=== PATIENT | male | born 1995 | race American Indian/Alaskan Native ===

== ENCOUNTER 2018-12-27 16:24 | Emergency (ER) | payer MEDICARE ==
[2018-12-27 16:46] VITALS: BP 144/96
--- NOTE | 2018-12-27 16:50 | Event Note ---
ED Screening Note Date of service: 12/27/18 Time: 16:46 ED Screening Note: 23 y/o male comes in for Pleurisy and sob. time 1 week. History of heart transplant in 1995. No fevers. This initial assessment/diagnostic orders/clinical plan/treatment(s) is/are subject to change based on patients health status, clinical progression and re- assessment by fellow clinical providers in the ED. Further treatment and workup at subsequent clinical providers discretion. Patient/guardian urged not to elope from the ED as their condition may be serious if not clinically assessed and managed. Initial orders include:
--- NOTE | 2018-12-27 17:50 | XRay Report ---
CHEST 2 VIEWS INDICATION / CLINICAL INFORMATION: sob chest pain with deep breath.. COMPARISON: None available. FINDINGS: SUPPORT DEVICES: None. HEART / MEDIASTINUM: Postoperative changes of median sternotomy. Heart size is normal. LUNGS / PLEURA: Mild pulmonary hyperinflation. Mild scarring in the left upper lobe. No superimposed acute disease. No pneumothorax. ADDITIONAL FINDINGS: No significant additional findings. IMPRESSION: 1. No acute findings. Signer Name: Chandan Marino MD Signed: 12/27/2018 5:46 PM Workstation Name: [id number]
[2018-12-27 18:23] LABS: Basophils # (Auto) 0.1 K/mm3 (0.0-0.1); Basophils % (Auto) 1.1 % (0.0-1.8); Eosinophils # (Auto) 0.3 K/mm3 (0.0-0.4); Eosinophils % (Auto) 4.7 % (0.0-4.3); Hematocrit 33.8 % (35.5-45.6); Hemoglobin 11.9 gm/dl (11.8-15.2); Lymphocytes # (Auto) 3.4 K/mm3 (1.2-5.4); Mean Corpuscular HGB Conc 35 % (32-34); Mean Corpuscular Volume 91 fl (84-94); Monocytes # (Auto) 0.5 K/mm3 (0.0-0.8); Monocytes % (Auto) 7.4 % (0.0-7.3); Platelet Count 280 K/mm3 (140-440); Red Blood Count 3.73 M/mm3 (3.65-5.03); Red Cell Distribution Width 14.5 % (13.2-15.2)
[2018-12-27 18:40] LABS: Albumin 3.7 g/dL (3.9-5); Calcium 6.4 mg/dL (8.4-10.2)
[2018-12-27] MEDS ORDERED: SUBLIMAZE IV ONE (20:24)
[2018-12-27] MEDS ORDERED: ZOFRAN IV ONE (20:24)
--- NOTE | 2018-12-27 20:30 | Emergency Department Report ---
HPI - General Chief Complaint: Dyspnea/Respdistress Time Seen by Provider: 12/27/18 16:45 - HPI HPI: Room 25 The patient is a 23-year-old male presenting with a chief complaint of right- sided chest pain. The patient has a history of cardiac transplant at 2 months of age secondary to right-sided hypoplasty. The patient states for about one week he said right-sided chest pain has been sharp and pleuritic in nature. Patient denies shortness of breath or fever. Patient admits to occasional cough today but states it is nonproductive. Patient denies nausea/vomiting or diaphoresis. Patient denies any recent flights/long car trips. The patient cu rrently gives his pain a score of 9/10. The patient states he went to an urgent care facility earlier today had a chest x-ray performed that was concerning for possible pleural effusion Location: [See above] Duration: [See above] Quality: [See above] Severity: [See above] Modifying factors: [see above] Context: [see above] Mode of transportation: [not driving] ED Past Medical Hx - Past Medical History Previous Medical History?: Yes Hx Renal Disease: Yes (PD) Hx HIV: Yes Additional medical history: heart transplant, lymphoma Ca - Surgical History Past Surgical History?: Yes Additional Surgical History: heart transplant - Family History Family history: no significant - Social History Smoking Status: Never Smoker Substance Use Type: None (denies illicit drug use), Alcohol (occasional) - Medications Home Medications: Home Medications Medication Instructions Recorded Confirmed Last Taken Type HYDROcodone/APAP 5-325 [[place] 1 - 2 each PO Q6HR PRN #14 tablet 12/27/18 Unknown Rx 5/325] NIFEdipine 60 mg PO BID 12/27/18 12/27/18 Unknown History Prograf 6 mg PO BID 12/27/18 12/27/18 Unknown History Triumeq 600-50-300 mg Tablet mg PO DAILY 12/27/18 Unknown History ED Review of Systems ROS: Stated complaint: POSS PLEURA Other details as noted in HPI Constitutional: denies: diaphoresis, fever Eyes: denies: eye pain ENT: denies: throat pain Respiratory: denies: shortness of breath Cardiovascular: chest pain Endocrine: no symptoms reported Gastrointestinal: denies: nausea, vomiting Genitourinary: denies: testicular pain Musculoskeletal: denies: back pain Neurological: denies: headache Physical Exam - Physical Exam Vital Signs: Vital Signs 12/27/18 16:44 Temperature 97.6 F Pulse Rate 96 H Respiratory 20 Rate Blood Pressure 144/96 O2 Sat by Pulse 99 Oximetry Physical Exam: GENERAL: The patient is well-developed well-nourished male sitting on stretcher not appearing to be in acute distress. [] HEENT: Normocephalic. Atraumatic. Extraocular motions are intact. Patient has moist mucous membranes. NECK: Supple. Trachea midline CHEST/LUNGS: Clear to auscultation. There is no respiratory distress noted. HEART/CARDIOVASCULAR: Regular. There is no tachycardia. There is no gallop rub or murmur. ABDOMEN: Abdomen is soft, nontender. Patient has normal bowel sounds. There is no abdominal distention. SKIN: There is no rash. There is no edema. There is no diaphoresis. NEURO: The patient is awake, alert, and oriented. The patient is cooperative. The patient has normal speech MUSCULOSKELETAL: There is no evidence of acute injury. ED Course Vital Signs 12/27/18 16:44 Temperature 97.6 F Pulse Rate 96 H Respiratory 20 Rate Blood Pressure 144/96 O2 Sat by Pulse 99 Oximetry - Consultations Consultation #1: 12/27/18 22:45 Case discussed with patient's cardiothoracic surgeon (Dr. Yakov Ospina, [place])- if pain is pleuritic and agree with plan to treat with pain medication and follow-up as an outpatient. Troponin unnecessary ED Medical Decision Making - Lab Data Result diagrams: 12/27/18 18:02 12/27/18 18:02 Laboratory Tests 12/27/18 12/27/18 18:02 18:02 WBC 7.3 RBC 3.73 Hgb 11.9 Hct 33.8 L MCV 91 MCH 32 MCHC 35 H RDW 14.5 Plt Count 280 Lymph % (Auto) 47.0 H [place] % (Auto) 7.4 H Eos % (Auto) 4.7 H Baso % (Auto) 1.1 Lymph # 3.4 Randolph # 0.5 Eos # 0.3 Baso # 0.1 Seg Neutrophils % 39.8 L Seg Neutrophils # 2.9 Sodium 136 L Potassium 3.9 Chloride 97.1 L Carbon Dioxide 20 L Anion Gap 23 BUN 47 H Creatinine 12.3 H Estimated GFR 6 BUN/Creatinine Ratio 4 Glucose 93 Calcium 6.4 L Total Bilirubin 0.30 AST 20 ALT 10 Alkaline Phosphatase 174 H NT-Pro-B Natriuret Pep 37773 H Total Protein 8.2 Albumin 3.7 L Albumin/Globulin Ratio 0.8 - EKG Data -: EKG Interpreted by Me EKG shows normal: sinus rhythm Rate: normal - EKG Data When compared to previous EKG there are: previous EKG unavailable Interpretation: nonspecific ST-T wave chio (T-wave inversions in leads V2, V3 ) - Radiology Data Radiology results: report reviewed (chest x-ray), image reviewed (chest x-ray, VQ scan) interpreted by me: Chest x-ray-no focal infiltrates, no pneumothorax [address] [address] XRay Report Signed Patient: SAIMA PARTIDA MR#: [id number] : 1995 Acct:[id number] Age/Sex: 23 / M ADM Date: 12/27/18 Loc: ED Attending Dr: Ordering Physician: JUAN J NICOLE Date of Service: 12/27/18 Procedure(s): XR chest routine 2V Accession Number(s): [id number] cc: JUAN J NICOLE Fluoro Time In Minutes: CHEST 2 VIEWS INDICATION / CLINICAL INFORMATION: sob chest pain with deep breath.. COMPARISON: None available. FINDINGS: SUPPORT DEVICES: None. HEART / MEDIASTINUM: Postoperative changes of median sternotomy. Heart size is normal. LUNGS / PLEURA: Mild pulmonary hyperinflation. Mild scarring in the left upper lobe. No superimposed acute disease. No pneumothorax. ADDITIONAL FINDINGS: No significant additional findings. IMPRESSION: 1. No acute findings. Signer Name: Chandan Marino MD Signed: 12/27/2018 5:46 PM Workstation Name: [id number] Transcribed By: GAURAV Dictated By: Chandan Marino MD Electronically Authenticated By: Chandan Marino MD Signed Date/Time: 12/27/181745 DD/ 43 TD/TT: [address] [address] Nuclear Medicine Report Signed Patient: SAIMA PARTIDA MR#: [id number] : 1995 Acct:[id number] Age/Sex: 23 / M ADM Date: 12/27/18 Loc: ED Attending Dr: Ordering Physician: LASHAWN PAIZ MD Date of Service: 12/27/18 Procedure(s): NM lung scan perf/vent Accession Number(s): [id number] cc: LASHAWN PAIZ MD Ventilation/perfusion scan 5 uCi technetium 99 MAA was administered prior to perfusion imaging. 15 uCi xenon-133 was administered prior to ventilation imaging. HISTORY: Right-sided chest pain. Ventilation study show fairly homogeneous uptake throughout both lungs. No significant air trapping. Perfusion is slightly inhomogeneous in both lungs, but I see no definite mismatched defects to indicate pulmonary embolus. IMPRESSION: Low probability of pulmonary embolus. However, if pulmonary embolus is strongly suspected clinically, CT angiogram is much more sensitive. Signer Name: Nelson Salcido MD Signed: 12/27/2018 9:48 PM Workstation Name: [id number] Transcribed By: TM Dictated By: Nelson Salcido MD Electronically Authenticated By: Nelson Salcido MD Signed Date/Time: 12/27/182147 DD/ 43 TD/TT: - Differential Diagnosis PE, pleurisy, pneumothorax, pneumonia, bronchitis Critical care attestation.: If time is entered above; I have spent that time in minutes in the direct care of this critically ill patient, excluding procedure time. ED Disposition Clinical Impression: Pleurisy Disposition: DC-01 TO HOME OR SELFCARE Is pt being admited?: No Does the pt Need Aspirin: No Condition: Stable Instructions: Pleurisy (ED) Additional Instructions: Return to the emergency department immediately should you develop worsening symptoms, fever, inability to tolerate food or liquid or any other concerns. Prescriptions: HYDROcodone/APAP 5-325 [[place] 5/325] 1 - 2 each PO Q6HR PRN #14 tablet PRN Reason: Pain Referrals: GABRIELA BARNES MD [Primary Care Provider] - 3-5 Days PRIMARY CAREMD [Referring] - 3-5 Days Time of Disposition: 22:48
--- NOTE | 2018-12-27 21:52 | Nuclear Medicine Report ---
Ventilation/perfusion scan 5 uCi technetium 99 MAA was administered prior to perfusion imaging. 15 uCi xenon-133 was administere d prior to ventilation imaging. HISTORY: Right-sided chest pain. Ventilation study show fairly homogeneous uptake throughout both lungs. No significant air trapping. Perfusion is slightly inhomogeneous in both lungs, but I see no definite mismatched defects to indica te pulmonary embolus. IMPRESSION: Low probability of pulmonary embolus. However, if pulmonary embolus is strongly suspected clinically, CT angiogram is much more sensitive. Signer Name: Nelson Salcido MD Signed: 12/27/2018 9:48 PM Workstation Name: [id number]
== END 2018-12-27 23:02 | disposition home or self-care (01) ==
LOC: ED 16:24
DX: R09.1 Pleurisy (principal); Z98.890 Other specified postprocedural states; Z79.899 Other long term (current) drug therapy; Z88.6 Allergy status to analgesic agent; Z88.8 Allergy status to other drugs, medicaments and biological substances
CPT/HCPCS: 36415; 71046; 78582; 80053; 83880; 85025; 93005; 93010; 96374; 96375; 99284; A9540; A9558; J2405; J3010

== ENCOUNTER 2019-04-24 04:31 | Inpatient (IN) | payer MEDICARE ==
[2019-04-24] MEDS ORDERED: ACETAMINOPHEN 325 MG TAB PO ONE (06:26)
[2019-04-24] MEDS ORDERED: MORPHINE 4 MG/1 ML INJ IM ONE (06:26)
--- NOTE | 2019-04-24 06:27 | Emergency Department Report ---
ED General Adult HPI - General Chief complaint: Rectal Pain Stated complaint: HIP/BUTTOCK PAIN Time Seen by Provider: 04/24/19 06:10 Source: patient, RN notes reviewed Mode of arrival: Ambulatory Limitations: Physical Limitation - History of Present Illness Initial comments: This is a 24-year-old gentleman. This patient is not known to this provider pr eviously. Past history is complex, including renal disease, on peritoneal dialysis, HIV, lymphoma, cardiac transplant, currently on Prograf therapy Patient reports all of his medical care is coordinated around [facility] Today, he presented to the emergency room with a complaint of nontraumatic left- sided gluteal pain. Pain is sharp and throbbing. It moves down the left posterior hamstring. There is no trauma, no recent vigorous physical activity, no heavy weightlifting. He denies headache, neck pain, chest pain, abdominal pain, shortness of breath and urinary symptoms. He makes no complaint of rectal pain per se. There is no complaint of vomiting blood and/or defecation of blood. Pain was not really improved by Tylenol or morphine after my initial evaluation. -: Gradual, This evening Location: buttocks, left Radiation: other Quality: other Consistency: other Improves with: other Worsens with: other Associated Symptoms: other - Related Data Home Medications Medication Instructions Recorded Confirmed Last Taken NIFEdipine 60 mg PO BID 12/27/18 12/27/18 Unknown Prograf 6 mg PO BID 12/27/18 12/27/18 Unknown Triumeq 600-50-300 mg Tablet mg PO DAILY 12/27/18 Unknown Previous Rx's Medication Instructions Recorded Last Taken Type HYDROcodone/APAP 5-325 [[place] 1 - 2 each PO Q6HR PRN #14 tablet 12/27/18 Unknown Rx 5/325] Allergies Allergy/AdvReac Type Severity Reaction Status Date / Time NSAIDS (Non-Steroidal Allergy Hives Verified 04/24/19 07:39 Anti-Inflamma ED Review of Systems ROS: Stated complaint: HIP/BUTTOCK PAIN Other details as noted in HPI Constitutional: denies: fever Eyes: denies: eye discharge ENT: denies: congestion Respiratory: denies: wheezing Cardiovascular: denies: syncope Gastrointestinal: denies: nausea, vomiting Genitourinary: denies: dysuria Musculoskeletal: myalgia Skin: denies: lesions Neurological: paresthesias ED Past Medical Hx - Past Medical History Previous Medical History?: Yes Hx Renal Disease: Yes (PD) Hx HIV: Yes Additional medical history: heart transplant, lymphoma Ca - Surgical History Past Surgical History?: Yes Additional Surgical History: heart transplant - Social History Smoking Status: Never Smoker Substance Use Type: None - Medications Home Medications: Home Medications Medication Instructions Recorded Confirmed Last Taken Type HYDROcodone/APAP 5-325 [[place] 1 - 2 each PO Q6HR PRN #14 tablet 12/27/18 Unknown Rx 5/325] NIFEdipine 60 mg PO BID 12/27/18 12/27/18 Unknown History Prograf 6 mg PO BID 12/27/18 12/27/18 Unknown History Triumeq 600-50-300 mg Tablet mg PO DAILY 12/27/18 Unknown History ED Physical Exam - General Limitations: No Limitations, Other (during the entire history and physical examination, I am ornamenter hand and escorted by nurse Jazlyn Resendiz) General appearance: alert, in no apparent distress - Head Head exam: Present: atraumatic, normocephalic - Eye Eye exam: Present: normal appearance, EOMI. Absent: nystagmus - ENT ENT exam: Present: normal exam, normal orophraynx, mucous membranes moist, normal external ear exam - Neck Neck exam: Present: normal inspection, full ROM. Absent: tenderness, meningismus - Respiratory Respiratory exam: Present: normal lung sounds bilaterally. Absent: respiratory distress - Cardiovascular Cardiovascular Exam: Present: regular rate, normal rhythm, normal heart sounds. Absent: bradycardia, tachycardia, irregular rhythm, systolic murmur, diastolic murmur, rubs, gallop - GI/Abdominal GI/Abdominal exam: Present: soft, normal bowel sounds, other (there is a peritoneal dialysis access catheter noted, with no redness, pus or streaking). Absent: distended, tenderness, guarding, rebound, rigid, pulsatile mass - Rectal Rectal exam: Present: normal inspection (there is exquisite reproducible left-sided gluteal tenderness. There is no redness, pus or streaking. There is reproducible sacroiliac tenderness. The gluteal compartments are soft.), other (chaperoned by nurse Lisa Resendiz) - Extremities Exam Extremities exam: Present: normal inspection, full ROM, other (2+ pulses noted in the bilateral upper and lower extremities. Muscular compartments are soft. The pelvis is stable. There is no long bony tenderness.). Absent: pedal edema, calf tenderness - Back Exam Back exam: Present: normal inspection. Absent: tenderness, CVA tenderness (R), muscle spasm, paraspinal tenderness, vertebral tenderness - Neurological Exam Neurological exam: Present: alert, oriented X3, other (there is no facial droop. The tongue is midline. Extraocular movements are intact bilaterally. There is 5/5 strength bilateral upper and lower extremities. Sensation is intact to light touch bilateral upper and lower extremities.) - Psychiatric Psychiatric exam: Present: anxious - Skin Skin exam: Present: warm, dry, intact, normal color. Absent: rash ED Course Vital Signs 04/24/19 04/24/19 04/24/19 04:44 06:05 07:03 Temperature 98.8 F Pulse Rate 91 H Respiratory 18 18 18 Rate Blood Pressure 135/95 Blood Pressure [Left] O2 Sat by Pulse 100 98 Oximetry 04/24/19 04/24/19 07:04 08:14 Temperature Pulse Rate 95 H Respiratory 18 19 Rate Blood Pressure Blood Pressure 134/90 [Left] O2 Sat by Pulse 100 Oximetry - Reevaluation(s) Reevaluation #1: 04/24/19 08:06 Differential diagnosis, including not limited to: Sacroiliitis, myositis, muscular pain, strain, tendinitis, myositis Assessment and plan: 24-year-old gentleman with nontraumatic reproducible left- sided gluteal pain and tenderness. He is afebrile with reassuring vital signs. Gluteal compartments are soft. There is no redness, pus or streaking. Patient appears to have pain out of proportion to examination and history. Laboratory studies suggest myositis. He is also found to have azotemia, uremia, and hypocalcemia. Noncontrast CT scan of the pelvis is ordered. IV fluids, and additional pain medication ordered. Calcium supplementation ordered. Patient does not appear to be decompensated from a cardiac transplant perspective. As a courtesy, we have reached out to his transplant team/coordinator to discuss the case. We are waiting for them to call back. Additional pain medication ordered. Patient and family updated on laboratory studies and plan of care. He will either get admitted to this hospital for supportive care and management, or, if his transplant team so desires for continuity of care, we will transfer back to his main facility for further treatment. Reevaluation #2: 04/24/19 08:51 Case discussed with transplant physician at [facility], Dr. Dobbins, who indicates the patient had a normal right-sided heart catheterization recently. We both agree that the patient does not require transfer at this time for cardiac transplant reasons. He does not appear to be acutely decompensated from a cardiac transplant perspective. She further indicates that there is a change in the patient's clinical status, her group Be contacted for reassessment. Contacted our general surgeon on-call, Dr. Fahad Lizama, and we discussed the patien t's history, exam, CT scan. At this point in time, we both agree that the patient does not require emergent surgical intervention. I would general surgeon field consultant indicates he can be contacted by the inpatient team, if there is a change in the patient's clinical condition. At this point in time, CT scan not consistent with emergent surgical condition Contacted our skidder operator on-call, Dr. Ambrosio, who indicated his group could follow in consultation. Hospital physician was paged to arrange admission. Agrees with calcium. 04/24/19 08:55 Reevaluation #3: 04/24/19 09:08 Additional history obtained. Patient's mother stated that he slept in bed all day yesterday. Therefore, the patient most likely has a mild gluteal rhabdomyolysis secondary to poor mobility from yesterday. Reevaluation #4: 04/24/19 09:35 Hospital physician, Dr. Collier has accepted the patient to the medical service. ED Medical Decision Making - Lab Data Result diagrams: 04/24/19 06:32 04/24/19 06:32 Vital Signs 04/24/19 04/24/19 04/24/19 04:44 06:05 07:03 Temperature 98.8 F Pulse Rate 91 H Respiratory 18 18 18 Rate Blood Pressure 135/95 O2 Sat by Pulse 100 98 Oximetry 04/24/19 07:04 Temperature Pulse Rate Respiratory 18 Rate Blood Pressure O2 Sat by Pulse Oximetry Lab Results 04/24/19 04/24/19 Range/Units 06:32 06:32 WBC 8.3 (4.5-11.0) K/mm3 RBC 3.52 L (3.65-5.03) M/mm3 Hgb 11.0 L (11.8-15.2) gm/dl Hct 32.5 L (35.5-45.6) % MCV 92 (84-94) fl MCH 31 (28-32) pg MCHC 34 (32-34) % RDW 16.4 H (13.2-15.2) % Plt Count 220 (140-440) K/mm3 Sodium 140 (137-145) mmol/L Potassium 4.5 (3.6-5.0) mmol/L Chloride 96.9 L (98-107) mmol/L Carbon Dioxide 19 L (22-30) mmol/L Anion Gap 29 mmol/L BUN 59 H (9-20) mg/dL Creatinine 16.6 H (0.8-1.5) mg/dL Estimated GFR 4 ml/min BUN/Creatinine Ratio 4 % Glucose 99 (75-100) mg/dL Calcium 5.4 L* (8.4-10.2) mg/dL Total Creatine Kinase 5749 H (55-170) units/L - EKG Data -: EKG Interpreted by Ok EKG shows normal: sinus rhythm Rate: normal - EKG Data 04/24/19 08:57 There is no prior EKG available for comparison. The EKG shows a sinus rhythm, prolonged QTc interval, Q waves noted in V2, nonspecific T-wave inversions V4, V5 and V6, there is high left ventricular voltage, the EKG is abnormal, the EKG is not consistent with ST elevation myocardial infarction. - Radiology Data Radiology results: pending, report reviewed, image reviewed Print Report Referring Physician: DIANN VARGAS Patient Name: SAIMA PARTIDA Date of : 1995 Sex: Male Report Date: 2019-04-24 Report Status: Finalized Findings [facility] [address] [place] [address] XRay Report Signed Patient: SAIMA PARTIDA MR#: [id number] : 1995 Acct:[id number] Age/Sex: 24 / M ADM Date: 04/24/19 Loc: ED Attending Dr: Ordering Physician: DIANN VARGAS MD Date of Service: 04/24/19 Procedure(s): XR hip 2-3V LT Accession Number(s): [id number] cc: DIANN VARGAS MD Fluoro Time In Minutes: LEFT HIP 2 VIEWS INDICATION / CLINICAL INFORMATION: left hip gluteal pain COMPARISON: None available. FINDINGS: BONES / JOINT(S): No acute fracture or subluxation. No significant arthritis. SOFT TISSUES: No significant abnormality. ADDITIONAL FINDINGS: None. Signer Name: Mark Black MD Signed: 04/24/2019 7:10 AM Workstation Name: [id number] Transcribed By: BC Dictated By: Mark Black MD Electronically Authenticated By: Mark Black MD Signed Date/Time: 04/24/19709 DD/ 8 Print Report Referring Physician: DIANN VARGAS Patient Name: SAIMA PARTIDA Date of : 1995 Sex: Male Report Date: 2019-04-24 Report Status: Finalized Findings [facility] [address] [place] [address] Cat Scan Report Signed Patient: SAIMA PARTIDA MR#: [id number] : 1995 Acct:[id number] Age/Sex: 24 / M ADM Date: 04/24/19 Loc: ED Attending Dr: Ordering Physician: DIANN VARGAS MD Date of Service: 04/24/19 Procedure(s): CT pelvis wo con Accession Number(s): [id number] cc: DIANN VARGAS MD CT PELVIS WITHOUT CONTRAST INDICATION / CLINICAL INFORMATION: rectalmgluteal pain. According to the ordering provider, the patient has elevated CK levels, worrisome for myositis or necrotizing fasciitis. TECHNIQUE: Axial CT images were obtained through the pelvis without contrast. All CT scans at this location are performed using CT dose reduction for ALARA by means of automated exposure control. COMPARISON: None available. FINDINGS: LINES AND TUBES: There is a peritoneal dialysis catheter entering the right lower quadrant and terminating in the pelvis. BOWEL: No significant abnormality. APPENDIX: No significant abnormality. PERITONEUM: Small ascites, likely secondary to peritoneal dialysis. No free air. No fluid collection. LYMPH NODES: There are multiple mildly prominent mesenteric lymph nodes. ARTERIES: No significant abnormality. VEINS: No significant abnormality. URINARY BLADDER: No significant abnormality. REPRODUCTIVE ORGANS: No significant abnormality. ADDITIONAL FINDINGS: There is no evidence of subcutaneous emphysema. The gluteal and visualized by musculature appears symmetric. SKELETAL SYSTEM: No significant abnormality. IMPRESSION: 1. No acute abnormality identified to account for gluteal pain. Specifically, there is no evidence of subcutaneous emphysema to suggest necrotizing infection. 2. Peritoneal dialysis catheter in place, with small ascites which is likely secondary to dialysis. 3. Multiple mildly prominent mesenteric lymph nodes are nonspecific and may be reactive. Consider follow-up CT in 3-6 months to ensure stability or resolution. Signer Name: Ailyn Jade MD Signed: 04/24/2019 8:50 AM Workstation Name: [id number] Transcribed By: [facility] Dictated By: Ailyn Jade MD Electronically Authenticated By: Ailyn Jade MD Signed Date/Time: 04/24/19 0850 Critical Care Time: Yes Critical care time in (mins) excluding proc time.: 35 Critical care attestation.: If time is entered above; I have spent that time in minutes in the direct care of this critically ill patient, excluding procedure time. Critical Care Time: Critical care time includes multiple bedside evaluations, interpretation of laboratory studies, radiology studies, and discussion with multiple consulting services, including transplant cardiology, Gen. surgery, nephrology, and hospital medicine. ED Disposition Clinical Impression: Rhabdomyolysis, Hypocalcemia, ESRD on peritoneal dialysis Disposition: OP ADMIT IP TO THIS HOSP Is pt being admited?: Yes Condition: Stable Referrals: PRIMARY CAREMD [Primary Care Provider] - 3-5 Days
[2019-04-24 06:47] LABS: Hematocrit 32.5 % (35.5-45.6); Mean Corpuscular HGB Conc 34 % (32-34); Mean Corpuscular Volume 92 fl (84-94); Platelet Count 220 K/mm3 (140-440); Red Blood Count 3.52 M/mm3 (3.65-5.03); Red Cell Distribution Width 16.4 % (13.2-15.2)
--- NOTE | 2019-04-24 07:14 | XRay Report ---
LEFT HIP 2 VIEWS INDICATION / CLINICAL INFORMATION: left hip gluteal pain COMPARISON: None available. FINDINGS: BONES / JOINT(S): No acute fracture or subluxation. No significant arthritis. SOFT TISSUES: No significant abnormality. ADDITIONAL FINDINGS: None. Signer Name: Mark Black MD Signed: 04/24/2019 7:10 AM Workstation Name: [id number]
[2019-04-24 07:28] LABS: Calcium 5.4 mg/dL (8.4-10.2)
[2019-04-24] MEDS ORDERED: SODIUM CHLORIDE 0.9% 500 ML 500 ML IV ONE (07:38)
[2019-04-24] MEDS ORDERED: CALCIUM GLUCONATE 1,000 MG in SODIUM CHLORIDE 0.9% 100 ML IV ONE (07:38)
[2019-04-24] MEDS ORDERED: fentaNYL 100 MCG/2 ML INJ IV ONE (08:01)
[2019-04-24 08:07] LABS: Alanine Aminotransferase 28 units/L (7-56); Albumin 3.5 g/dL (3.9-5)
[2019-04-24 08:08] LABS: Bilirubin,Direct < 0.2 mg/dL (0-0.2)
[2019-04-24 08:20] LABS: INR 1.17 (0.87-1.13)
[2019-04-24 08:21] LABS: Partial Thromboplastin Time 42.7 Sec. (24.2-36.6)
--- NOTE | 2019-04-24 08:55 | Cat Scan Report ---
CT PELVIS WITHOUT CONTRAST INDICATION / CLINICAL INFORMATION: rectalmgluteal pain. According to the ordering provider, the patient has elevated CK levels, worrisom e for myositis or necrotizing fasciitis. TECHNIQUE: Axial CT images were obtained through the pelvis without contrast. All CT scans at this location are performed using CT dose reduction for ALARA by means of automated exposure control. COMPARISON: None available. FINDINGS: LINES AND TUBES: There is a peritoneal dialysis catheter entering the right lower quadrant and termin ating in the pelvis. BOWEL: No significant abnormality. APPENDIX: No significant abnormality. PERITONEUM: Small ascites, likely secondary to peritoneal dialysis. No free air. No fluid collection. LYMPH NODES: There are multiple mildly prominent mesenteric lymph nodes. ARTERIES: No significant abnormality. VEINS: No significant abnormality. URINARY BLADDER: No significant abnormality. REPRODUCTIVE ORGANS: No significant abnormality. ADDITIONAL FINDINGS: There is no evidence of subcutaneous emphysema. The gluteal and visualized by mu sculature appears symmetric. SKELETAL SYSTEM: No significant abnormality. IMPRESSION: 1. No acute abnormality identified to account for gluteal pain. Specifically, there is no evidence of subcutaneous emphysema to suggest necrotizing infection. 2. Peritoneal dialysis catheter in place, with small ascites which is likely secondary to dialysis. 3. Multiple mildly prominent mesenteric lymph nodes are nonspecific and may be reactive. Consider fol low-up CT in 3-6 months to ensure stability or resolution. Signer Name: Ailyn Jade MD Signed: 04/24/2019 8:50 AM Workstation Name: [id number]
--- NOTE | 2019-04-24 10:20 | History and Physical Report ---
History of Present Illness Chief complaint: My butt hurts History of present illness: 24 YO Male with HTN, ESRD on PD, HIV, Lymphoma, S/P Cardiac transplant on Prograf presents to ED for evaluation. Pt states that he has experienced pain to his left buttock as well as muscle soreness over the past 2 days with progress ively worsening symptoms over the past 1 day. Pt states that pain is 5/10, constant, worsened with sitting on his left side, radiates down the left leg. Pt transported to [facility] via private vehicle. Pt seen and evaluated in ED and found to have Rhabdomyolysis, ESRD, Acidosis, and Severe Malnutrition. Pt admitted to medical floor. Transplant Service at [facility] notified, and patient does not require transfer, and may be admitted to [facility] for supportive care. Nephrology consulted in ED for PD, Surgery team consulted. Pt denies fever, chills, CP, Palpitations, NVD, Trauma, BRBPR, Productive cough, skin rash, or recent ill contacts. No prior admission for review. All medication listed at time of admission has been reconciled. Past History Past Medical History: other (see HPI) Past Surgical History: Other (CArdiac surgery) Social history: single. denies: smoking, alcohol abuse, prescription drug abuse Family history: hypertension Medications and Allergies Allergies Allergy/AdvReac Type Severity Reaction Status Date / Time NSAIDS (Non-Steroidal Allergy Hives Verified 04/24/19 07:39 Anti-Inflamma Home Medications Medication Instructions Recorded Confirmed Last Taken Type HYDROcodone/APAP 5-325 [[place] 1 - 2 each PO Q6HR PRN #14 tablet 12/27/18 Unknown Rx 5/325] NIFEdipine 60 mg PO BID 12/27/18 12/27/18 Unknown History Prograf 6 mg PO BID 12/27/18 12/27/18 Unknown History Triumeq 600-50-300 mg Tablet mg PO DAILY 12/27/18 Unknown History Review of Systems Constitutional: no weight loss, no weight gain, no fever, no chills Ears, nose, mouth and throat: no ear pain, no ear discharge, no tinnitis, no decreased hearing, no nose pain, no nasal congestion Cardiovascular: no chest pain, no orthopnea, no edema, no lightheadedness Respiratory: no cough, no cough with sputum, no shortness of breath, no dyspnea on exertion Gastrointestinal: no abdominal pain, no nausea, no vomiting, no diarrhea, no change in bowel habits Genitourinary Male: no hematuria, no flank pain, no urinary frequency, no urinary hesitancy, no nocturia, no incontinence Rectal: no pain, no incontinence, no bleeding Musculoskeletal: no shooting arm pain, no arm numbness/tingling, no low back pain, no shooting leg pain Integumentary: no rash, no pruritis, no redness, no sores, no jaundice Neurological: no transient paralysis, no paralysis, no numbness, no tingling, no seizures, no tremors, no ataxia Psychiatric: no anxiety, no sleep disturbances, no insomnia, no change in appetite, no change in libido Endocrine: no cold intolerance, no polyphagia, no excessive thirst Hematologic/Lymphatic: no easy bruising, no easy bleeding, no lymphadenopathy, no lymphedema Allergic/Immunologic: no urticaria, no allergic rhinitis, no wheezing Exam - Constitutional Vitals: Temp Pulse Resp BP Pulse Ox 98.8 F 96 H 19 128/90 100 04/24/19 04:44 04/24/19 09:45 04/24/19 09:45 04/24/19 09:45 04/24/19 09:45 General appearance: Present: mild distress, cachectic - EENT Eyes: Present: PERRL ENT: hearing intact, clear oral mucosa - Neck Neck: Present: supple, normal ROM - Respiratory Respiratory effort: normal Respiratory: bilateral: CTA - Cardiovascular Heart Sounds: Present: S1 & S2. Absent: rub, click - Extremities Extremities: pulses symmetrical, No edema Peripheral Pulses: within normal limits - Abdominal General gastrointestinal: Present: soft, non-tender, non-distended, normal bowel sounds Male genitourinary: Present: normal - Rectal Rectal Exam: other (Left gluteal tenderness) - Integumentary Integumentary: Present: clear, warm, dry - Musculoskeletal Musculoskeletal: gait normal, strength equal bilaterally - Psychiatric Psychiatric: appropriate mood/affect, intact judgment & insight - Neurologic Neurologic: CNII-XII intact, moves all extremities Results - Labs CBC & Chem 7: 04/24/19 06:32 04/24/19 06:32 Labs: Abnormal lab results 04/24/19 04/24/19 04/24/19 Range/Units 06:32 06:32 06:32 RBC 3.52 L (3.65-5.03) M/mm3 Hgb 11.0 L (11.8-15.2) gm/dl Hct 32.5 L (35.5-45.6) % RDW 16.4 H (13.2-15.2) % INR (0.87-1.13) APTT (24.2-36.6) Sec. Chloride 96.9 L (98-107) mmol/L Carbon Dioxide 19 L (22-30) mmol/L BUN 59 H (9-20) mg/dL Creatinine 16.6 H (0.8-1.5) mg/dL Calcium 5.4 L* (8.4-10.2) mg/dL Total Creatine Kinase 5749 H (55-170) units/L Albumin 3.5 L (3.9-5) g/dL 04/24/19 Range/Units 08:00 RBC (3.65-5.03) M/mm3 Hgb (11.8-15.2) gm/dl Hct (35.5-45.6) % RDW (13.2-15.2) % INR 1.17 H (0.87-1.13) APTT 42.7 H (24.2-36.6) Sec. Chloride (98-107) mmol/L Carbon Dioxide (22-30) mmol/L BUN (9-20) mg/dL Creatinine (0.8-1.5) mg/dL Calcium (8.4-10.2) mg/dL Total Creatine Kinase (55-170) units/L Albumin (3.9-5) g/dL Assessment and Plan - Patient Problems (1) Rhabdomyolysis Current Visit: Yes Status: Acute Qualifiers: Encounter type: initial encounter Plan to address problem: IVF resuscitation therapy, IV bicarbonate, serial bmp to monitor serum creatnine, repeat CK level, nephrology consulted, (2) Acidosis Current Visit: Yes Status: Acute Plan to address problem: IV bicarbonate therapy, supportive care. (3) Severe malnutrition Current Visit: Yes Status: Acute Plan to address problem: Increased protein intake, dietary supplementation (4) ESRD on peritoneal dialysis Current Visit: Yes Status: Acute Plan to address problem: Nephrology consulted in ED, dialysis as per renal team. (5) Hypocalcemia Current Visit: Yes Status: Acute Plan to address problem: Calcium gluconate administered in ED, repeat bmp in am. (6) HTN (hypertension) Current Visit: Yes Status: Acute Qualifiers: Hypertension type: essential hypertension Qualified Code(s): I10 - Essential (primary) hypertension Plan to address problem: Monitor bp q shift, supportive care (7) DVT prophylaxis Current Visit: Yes Status: Acute Plan to address problem: SCD to BLE while in bed, supportive care. Pt ambulatory
[2019-04-24] MEDS ORDERED: ACETAMINOPHEN 325 MG TAB PO PRN (10:22)
[2019-04-24] MEDS ORDERED: ALBUTEROL 2.5 MG/3 ML NEBU IH PRN (10:22)
[2019-04-24] MEDS ORDERED: ONDANSETRON 4 MG/2 ML INJ IV PRN (10:22)
[2019-04-24] MEDS ORDERED: SODIUM BICARB 8.4% 50 MEQ/50 ML SYRINGE IV ONE (11:27)
--- NOTE | 2019-04-24 12:36 | Consultation ---
History of Present Illness - History of Present Illness This is a 24 y/o M with PMH of ESRD on PD, followed by Dr Darío Marrero (talent director) as outpatient, lymphoma in 2017 s/p chemo, s/p cardiac transplant in 1995 at [facility] on prograf 6 mg po BID, and HIV who presented to [facility] ED with c/o left buttock pain, muscle soreness, radiating down his left leg. Pt was diagnosed with Rhabdo, acidosis, and severe malnutrition and admitted to medical floor. CK level was 5749. S/p IV fluid bolus. Pt states he undergoes CCPD with cylcer 1.5% dextrose, 5 liter bags, 4-5 exchanges on cylcer. Pt reports PD exchanges are clear, no drainage around PD catheter site, denies abdominal pain, shortness of breath, chest pain, nausea, vomiting, diarrhea, constipation, fever, or chills. We were consulted to evaluate this pt who has ESRD. . Past History Past Medical History: other (see HPI) Past Surgical History: Other (CArdiac surgery) Social history: single. denies: smoking, alcohol abuse, prescription drug abuse Family history: hypertension Medications and Allergies Allergies Allergy/AdvReac Type Severity Reaction Status Date / Time NSAIDS (Non-Steroidal Allergy Hives Verified 04/24/19 07:39 Anti-Inflamma Home Medications Medication Instructions Recorded Confirmed Last Taken Type HYDROcodone/APAP 5-325 [[place] 1 - 2 each PO Q6HR PRN #14 tablet 12/27/18 Unknown Rx 5/325] NIFEdipine 60 mg PO BID 12/27/18 12/27/18 Unknown History Prograf 6 mg PO BID 12/27/18 12/27/18 Unknown History Triumeq 600-50-300 mg Tablet mg PO DAILY 12/27/18 Unknown History Active Meds: Active Medications Acetaminophen (Tylenol) 650 mg PO Q4H PRN PRN Reason: Pain MILD(1-3)/Fever >100.5/FREIRE Acetaminophen/Hydrocodone Bitart ([place] 5/325) 1 each PO Q6HR PRN PRN Reason: PAIN Albuterol (Proventil) 2.5 mg IH Q4HRT PRN PRN Reason: Shortness Of Breath Sodium Chloride (Nacl 0.9% 1000 Ml) 1,000 mls @ 100 mls/hr IV DIRECT SHANTE Nifedipine (Procardia Xl) 60 mg PO BID SHANTE Ondansetron HCl (Zofran) 4 mg IV Q8H PRN PRN Reason: Nausea And Vomiting Sodium Chloride (Sodium Chloride Flush Syringe 10 Ml) 10 ml IV BID [facility] Sodium Chloride (Sodium Chloride Flush Syringe 10 Ml) 10 ml IV PRN PRN PRN Reason: LINE FLUSH Tacrolimus (Prograf) 5 mg PO Q12HR SHANTE Tacrolimus (Prograf) 1 mg PO Q12HR SHANTE Review of Systems Constitutional: no fever, no chills, no weakness Cardiovascular: no chest pain, no shortness of breath, no dyspnea on exertion, n o leg edema Respiratory: no shortness of breath, no dyspnea on exertion Gastrointestinal: no abdominal pain, no nausea, no vomiting, no diarrhea, no c onstipation, no hematemesis Genitourinary Male: no dysuria, no hematuria Musculoskeletal: other (left buttock pain radiating down left leg) Integumentary: no wounds Neurological: no change in speech Exam - Vital Signs Vital signs: Vital Signs Temp Pulse Resp BP Pulse Ox 98.8 F 91 H 18 135/95 100 04/24/19 04:44 04/24/19 04:44 04/24/19 04:44 04/24/19 04:44 04/24/19 04:44 - General Appearance General appearance: other (awake) EENT: ATNC Neck: Present: neck supple Respiratory: Clear to Ascultation Heart: regular, S1S2 Gastrointestinal: Present: normoactive bowel sounds (abdominal peritoneal dialysis catheter intact - no erythema or drainage noted). Absent: tenderness Integumentary: warm and dry Neurologic: alert and oriented x3 Musculoskeletal: Present: other (no edema to BLE) Psychiatric: cooperative Results - Lab Results 04/24/19 06:32 04/24/19 06:32 Most recent lab results Calcium 5.4 mg/dL (8.4-10.2) L* 04/24/19 06:32 Assessment and Plan ESRD on PD HIV Hypocalcemia Anion Gap Metabolic Acidosis Rhabdomyolysis S/p cardiac transplant in 1995 at [facility] per pt Hx of lymphoma s/p chemo in 2016 Plan: - Start on CAPD manual exchanges with 1.5% dextrose solution, 2 liter dwell volume, dwell time 4 hours, 5 exchanges per day - This pt undergoes CCPD with cylcer 1.5% dextrose solution, 4-5 exchanges on cylcer at home - Replete calcium - Ionized calcium pending - Check phosphorus and PTH - Pt followed by [facility] team - currently on prograf 6 mg po BID - Check tacrolimus level in am - On renal diet - Replete electrolytes as needed - Castellano Catheter: No - Renal plan d/w Dr Almazan
[2019-04-24] MEDS: SODIUM CHLORIDE 0.9% 1000 ML 1,000 ML IV SCH (13:52)
[2019-04-24] MEDS ORDERED: DIALYSATE LO CAL 1.5% SOLN 2000 ML IP SCH (14:00)
[2019-04-24] MEDS: HYDROcodone/ACETAMINOPHEN 5-325 MG TAB PO PRN ×2 (14:02→20:32)
[2019-04-24] MEDS: DIALYSATE LO CAL 1.5% SOLN 2000 ML IP SCH ×2 (16:11→21:02)
[2019-04-24] MEDS: NIFEdipine XL 30 MG TAB PO SCH (21:37)
[2019-04-24] MEDS: TACROLIMUS 1 MG CAP PO SCH (21:37)
[2019-04-24] MEDS: TACROLIMUS 5 MG CAP PO SCH (21:37)
[2019-04-24] MEDS ORDERED: TACROLIMUS 6 MG PO SCH (22:00)
[2019-04-24] MEDS ORDERED: NON-FORMULARY EACH (Nifedipine 60 MG) PO SCH (22:00)
[2019-04-25] MEDS: SODIUM CHLORIDE 0.9% 1000 ML 1,000 ML IV SCH ×2 (00:04→09:33)
[2019-04-25] MEDS: DIALYSATE LO CAL 1.5% SOLN 2000 ML IP SCH ×4 (00:40→12:17)
[2019-04-25] MEDS: HYDROmorphone 1 MG/1 ML INJ IV PRN ×3 (00:43→09:41)
[2019-04-25 08:27] LABS: Basophils # (Auto) 0.1 K/mm3 (0.0-0.1); Basophils % (Auto) 0.8 % (0.0-1.8); Eosinophils # (Auto) 0.3 K/mm3 (0.0-0.4); Eosinophils % (Auto) 3.3 % (0.0-4.3); Hematocrit 32.4 % (35.5-45.6); Lymphocytes # (Auto) 2.9 K/mm3 (1.2-5.4); Lymphocytes % (Auto) 29.8 % (13.4-35.0); Mean Corpuscular HGB Conc 34 % (32-34); Mean Corpuscular Volume 92 fl (84-94); Monocytes # (Auto) 0.9 K/mm3 (0.0-0.8); Monocytes % (Auto) 9.7 % (0.0-7.3); Platelet Count 245 K/mm3 (140-440); Red Blood Count 3.52 M/mm3 (3.65-5.03); Red Cell Distribution Width 16.2 % (13.2-15.2)
[2019-04-25 08:50] LABS: Calcium 6.2 mg/dL (8.4-10.2)
[2019-04-25] MEDS: NIFEdipine XL 30 MG TAB PO SCH ×2 (09:32→22:48)
[2019-04-25] MEDS: TACROLIMUS 1 MG CAP PO SCH ×2 (09:33→22:48)
[2019-04-25] MEDS: TACROLIMUS 5 MG CAP PO SCH ×2 (09:33→22:47)
[2019-04-25] MEDS: HYDROcodone/ACETAMINOPHEN 5-325 MG TAB PO PRN ×2 (10:55→22:47)
--- NOTE | 2019-04-25 12:29 | Progress Note ---
Assessment and Plan ESRD on PD HIV Hypocalcemia Anion Gap Metabolic Acidosis Rhabdomyolysis S/p cardiac transplant in 1995 at [facility] per pt Hx of lymphoma s/p chemo in 2017 Plan: - cont CAPD manual exchanges with 1.5% dextrose solution, 2 liter dwell volume, dwell time 4 hours, 5 exchanges per day, order to allow patient to use his cycler was placed, discussed with RN - Replete calcium - Ionized calcium pending - Check phosphorus and PTH - Pt followed by [facility]plant team - currently on prograf 6 mg po BID - Check tacrolimus level in am - On renal diet - Replete electrolytes as needed - Castellano Catheter: No Francois Somers MD [phone] Subjective Date of service: 04/25/19 Principal diagnosis: ESRD Interval history: c/o of some cramping during PD Objective - Vital Signs Vital signs: Vital Signs - 12hr 04/25/19 04/25/19 04/25/19 05:21 09:49 11:36 Temperature 97.9 F 98.2 F Pulse Rate 103 H 107 H Respiratory 22 18 Rate Blood Pressure 117/75 117/74 O2 Sat by Pulse 95 97 99 Oximetry - General Appearance General appearance: well-developed, well-nourished, appears stated age EENT: ATNC, PERRL, mucous membranes moist Neck: no JVD, no carotid bruit Respiratory: Present: Clear to Ascultation. Absent: Rales, Ronchi Cardiology: regular, S1S2 Gastrointestinal: normoactive bowel sounds Integumentary: no rash, warm and dry Neurologic: no focal deficit, no asterixis, alert and oriented x3 Musculoskeletal: deferred Psychiatric: mood/affect appropriate, cooperative - Lab 04/25/19 07:49 04/25/19 07:49 Most recent lab results Calcium 6.2 mg/dL (8.4-10.2) L 04/25/19 07:49 Medications & Allergies - Medications Allergies/Adverse Reactions: Allergies NSAIDS (Non-Steroidal Anti-Inflamma Allergy (Verified 04/24/19 07:39) Hives Home Medications: Home Medications Medication Instructions Recorded Confirmed Last Taken Type HYDROcodone/APAP 5-325 [[place] 1 - 2 each PO Q6HR PRN #14 tablet 12/27/18 Unknown Rx 5/325] NIFEdipine 60 mg PO BID 12/27/18 12/27/18 Unknown History Prograf 6 mg PO BID 12/27/18 12/27/18 Unknown History Triumeq 600-50-300 mg Tablet mg PO DAILY 12/27/18 Unknown History Auryxia 210 mg PO TIDWM 04/24/19 04/24/19 Unknown History Calcitriol (Nf) 0.5 mcg PO DAILY 04/24/19 04/24/19 Unknown History Triumeq 600-50-300 mg Tablet 1 tab PO DAILY 04/24/19 04/24/19 Unknown History Active Medications: Generic Name Dose Route Start Last Admin Trade Name Freq PRN Reason Stop Dose Admin Acetaminophen 650 mg 04/24/19 10:22 Tylenol PO Q4H PRN Pain MILD(1-3)/Fever >100.5/FREIRE Acetaminophen/Hydrocodone Bitart 1 each 04/24/19 11:13 04/25/19 10:55 [place] 5/325 PO 1 each Q6HR PRN Administration PAIN Albuterol 2.5 mg 04/24/19 10:22 Proventil IH Q4HRT PRN Shortness Of Breath Hydromorphone HCl 0.5 mg 04/24/19 22:16 04/25/19 09:41 Dilaudid IV 0.5 mg Q3H PRN Administration Pain , Severe (7-10) Sodium Chloride 1,000 mls @ 100 mls/hr 04/24/19 11:00 04/25/19 09:33 Nacl 0.9% 1000 Ml IV 100 mls/hr DIRECT SHANTE Administration Nifedipine 60 mg 04/24/19 22:00 04/25/19 09:32 Procardia Xl PO 60 mg BID SHANTE Administration Ondansetron HCl 4 mg 04/24/19 10:22 04/25/19 02:01 Zofran IV 4 mg Q8H PRN Administration Nausea And Vomiting Peritoneal Dialysis Solution 2,000 ml 04/24/19 16:00 04/25/19 12:17 Dianeal Low Calcium W/1.5% Dextrose IP 2,000 ml Q4H SHANTE Administration Sodium Chloride 10 ml 04/24/19 22:00 04/25/19 09:33 Sodium Chloride Flush Syringe 10 Ml IV 10 ml BID SHANTE Administration Sodium Chloride 10 ml 04/24/19 10:22 Sodium Chloride Flush Syringe 10 Ml IV PRN PRN LINE FLUSH Tacrolimus 5 mg 04/24/19 22:00 04/25/19 09:33 Prograf PO 5 mg Q12HR SHANTE Administration Tacrolimus 1 mg 04/24/19 22:00 04/25/19 09:33 Prograf PO 1 mg Q12HR SHANTE Administration
--- NOTE | 2019-04-25 13:20 | Progress Note ---
Assessment and Plan Assessment and plan: Rhabdomyolysis IVF resuscitation therapy, repeat CK level, nephrology consulted, Left Gluteal pain CT scan and Hip x-ray negative Severe malnutrition Increased protein intake, dietary supplementation ESRD on peritoneal dialysis Nephrology consulted in ED, dialysis as per renal team. Hypocalcemia Calcium gluconate administered in ED, repeat bmp in am. HTN (hypertension) Monitor bp q shift, supportive care History Interval history: Pt still c/o left buttocks pain Hospitalist Physical - Constitutional Vitals: Temp Pulse Resp BP Pulse Ox 98.2 F 107 H 18 117/74 99 04/25/19 11:36 04/25/19 11:36 04/25/19 11:36 04/25/19 11:36 04/25/19 11:36 General appearance: Present: no acute distress, cachectic - EENT Eyes: Present: PERRL, EOM intact ENT: hearing intact, clear oral mucosa, dentition normal - Neck Neck: Present: supple, normal ROM - Respiratory Respiratory effort: normal Respiratory: bilateral: CTA - Cardiovascular Rhythm: regular Heart Sounds: Present: S1 & S2. Absent: gallop, rub - Extremities Extremities: no ischemia, No edema, Full ROM - Abdominal General gastrointestinal: soft, non-tender, non-distended, normal bowel sounds - Integumentary Integumentary: Present: clear, warm, dry - Neurologic Neurologic: CNII-XII intact, moves all extremities Results - Labs CBC & Chem 7: 04/25/19 07:49 04/25/19 07:49 Labs: Laboratory Last Values WBC 9.7 K/mm3 (4.5-11.0) 04/25/19 07:49 RBC 3.52 M/mm3 (3.65-5.03) L 04/25/19 07:49 Hgb 11.0 gm/dl (11.8-15.2) L 04/25/19 07:49 Hct 32.4 % (35.5-45.6) L 04/25/19 07:49 MCV 92 fl (84-94) 04/25/19 07:49 MCH 31 pg (28-32) 04/25/19 07:49 MCHC 34 % (32-34) 04/25/19 07:49 RDW 16.2 % (13.2-15.2) H 04/25/19 07:49 Plt Count 245 K/mm3 (140-440) 04/25/19 07:49 Lymph % (Auto) 29.8 % (13.4-35.0) 04/25/19 07:49 Henry % (Auto) 9.7 % (0.0-7.3) H 04/25/19 07:49 Eos % (Auto) 3.3 % (0.0-4.3) 04/25/19 07:49 Baso % (Auto) 0.8 % (0.0-1.8) 04/25/19 07:49 Lymph # 2.9 K/mm3 (1.2-5.4) 04/25/19 07:49 Henry # 0.9 K/mm3 (0.0-0.8) H 04/25/19 07:49 Eos # 0.3 K/mm3 (0.0-0.4) 04/25/19 07:49 Baso # 0.1 K/mm3 (0.0-0.1) 04/25/19 07:49 Seg Neutrophils % 56.4 % (40.0-70.0) 04/25/19 07:49 Seg Neutrophils # 5.5 K/mm3 (1.8-7.7) 04/25/19 07:49 PT 14.8 Sec. (12.2-14.9) 04/24/19 08:00 INR 1.17 (0.87-1.13) H 04/24/19 08:00 APTT 42.7 Sec. (24.2-36.6) H 04/24/19 08:00 Sodium 137 mmol/L (137-145) 04/25/19 07:49 Potassium 4.6 mmol/L (3.6-5.0) 04/25/19 07:49 Chloride 95.9 mmol/L (98-107) L 04/25/19 07:49 Carbon Dioxide 18 mmol/L (22-30) L 04/25/19 07:49 Anion Gap 28 mmol/L 04/25/19 07:49 BUN 56 mg/dL (9-20) H 04/25/19 07:49 Creatinine 16.0 mg/dL (0.8-1.5) H 04/25/19 07:49 Estimated GFR 5 ml/min 04/25/19 07:49 BUN/Creatinine Ratio 4 % 04/25/19 07:49 Glucose 113 mg/dL (75-100) H 04/25/19 07:49 Calcium 6.2 mg/dL (8.4-10.2) L 04/25/19 07:49 Total Bilirubin < 0.20 mg/dL (0.1-1.2) 04/24/19 06:32 Direct Bilirubin < 0.2 mg/dL (0-0.2) 04/24/19 06:32 Indirect Bilirubin 0.0 mg/dL 04/24/19 06:32 AST 35 units/L (5-40) 04/24/19 06:32 ALT 28 units/L (7-56) 04/24/19 06:32 Alkaline Phosphatase 129 units/L (35-129) 04/24/19 06:32 Total Creatine Kinase 5749 units/L (55-170) H 04/24/19 06:32 Total Protein 7.2 g/dL (6.3-8.2) 04/24/19 06:32 Albumin 3.5 g/dL (3.9-5) L 04/24/19 06:32 Albumin/Globulin Ratio 0.9 % 04/24/19 06:32 PTH Intact 1091 pg/mL (15-65) H 04/25/19 07:49 Active Medications - Current Medications Current Medications: Generic Name Dose Route Start Last Admin Trade Name Freq PRN Reason Stop Dose Admin Acetaminophen 650 mg 04/24/19 10:22 Tylenol PO Q4H PRN Pain MILD(1-3)/Fever >100.5/FREIRE Acetaminophen/Hydrocodone Bitart 1 each 04/24/19 11:13 04/25/19 10:55 [place] 5/325 PO 1 each Q6HR PRN Administration PAIN Albuterol 2.5 mg 04/24/19 10:22 Proventil IH Q4HRT PRN Shortness Of Breath Hydromorphone HCl 0.5 mg 04/24/19 22:16 04/25/19 09:41 Dilaudid IV 0.5 mg Q3H PRN Administration Pain , Severe (7-10) Sodium Chloride 1,000 mls @ 100 mls/hr 04/24/19 11:00 04/25/19 09:33 Nacl 0.9% 1000 Ml IV 100 mls/hr DIRECT SHANTE Administration Nifedipine 60 mg 04/24/19 22:00 04/25/19 09:32 Procardia Xl PO 60 mg BID SHANTE Administration Ondansetron HCl 4 mg 04/24/19 10:22 04/25/19 02:01 Zofran IV 4 mg Q8H PRN Administration Nausea And Vomiting Peritoneal Dialysis Solution 2,000 ml 04/24/19 16:00 04/25/19 12:17 Dianeal Low Calcium W/1.5% Dextrose IP 2,000 ml Q4H SHANTE Administration Sodium Chloride 10 ml 04/24/19 22:00 04/25/19 09:33 Sodium Chloride Flush Syringe 10 Ml IV 10 ml BID SHANTE Administration Sodium Chloride 10 ml 04/24/19 10:22 Sodium Chloride Flush Syringe 10 Ml IV PRN PRN LINE FLUSH Tacrolimus 5 mg 04/24/19 22:00 04/25/19 09:33 Prograf PO 5 mg Q12HR SHANTE Administration Tacrolimus 1 mg 04/24/19 22:00 04/25/19 09:33 Prograf PO 1 mg Q12HR SHANTE Administration
[2019-04-26] MEDS: HYDROmorphone 1 MG/1 ML INJ IV PRN ×5 (00:13→20:41)
[2019-04-26 07:48] LABS: Hematocrit 31.4 % (35.5-45.6); Mean Corpuscular HGB Conc 35 % (32-34); Mean Corpuscular Volume 91 fl (84-94); Platelet Count 224 K/mm3 (140-440); Red Blood Count 3.46 M/mm3 (3.65-5.03)
[2019-04-26 07:56] LABS: Calcium 6.3 mg/dL (8.4-10.2)
[2019-04-26] MEDS: NIFEdipine XL 30 MG TAB PO SCH ×2 (09:07→22:23)
[2019-04-26] MEDS: TACROLIMUS 1 MG CAP PO SCH ×2 (09:08→22:24)
[2019-04-26] MEDS: TACROLIMUS 5 MG CAP PO SCH ×2 (09:08→22:23)
[2019-04-26] MEDS: DIALYSATE LO CAL 1.5% SOLN 2000 ML IP SCH ×2 (09:11→12:42)
--- NOTE | 2019-04-26 09:49 | Discharge Summary ---
Providers - Providers Date of Admission: 04/24/19 09:35 Date of discharge: 04/26/19 Attending physician: STEPHANIE CORRAL 04/24/19 08:39 Consult to Physician [CONS] Urgent Comment: Consulting Provider: MARIANA VIZCARRA Physician Instructions: Reason For Exam: esrd Primary care physician: HAND INSPECTOR Hospitalization Reason for admission: left gluteal pain Condition: Stable Hospital course: This is a 24 y/o M with PMH of ESRD on PD, followed by Dr Darío Marrero (card writer hand) as outpatient, lymphoma in 2017 s/p chemo, s/p cardiac transplant in 1995 at [facility] on prograf 6 mg po BID, and HIV who presented to [facility] ED with c/o left buttock pain, muscle soreness, radiating down his left leg. Pt was diagnosed with Rhabdo, metabolic acidosis and admitted to medical floor. CK level was 5749. Pt received IV fluid bolus. CK level improved to a level of 2505. The patient had diagnostic studies including CT scan and hip x-rays that were found to be negative. No evidence of cellulitis or abscess. Nephrology evaluated the patient and continued with peritoneal dialysis for his ESRD. Later during the hospital stay, patient complained of chest pain associated with cough. Chest x- ray was obtained and found to be . Patient is felt to receive maximal hospital benefit and will be discharged home. Dedicated discharge time 32 minutes. Disposition: DC- TO HOME OR SELFCARE Time spent for discharge: 32 - Discharge Diagnoses (1) Acidosis Status: Acute (2) DVT prophylaxis Status: Acute (3) ESRD on peritoneal dialysis Status: Acute (4) HTN (hypertension) Status: Acute Qualifiers: Hypertension type: essential hypertension Qualified Code(s): I10 - Essential (primary) hypertension (5) Hypocalcemia Status: Acute (6) Rhabdomyolysis Status: Acute Qualifiers: Encounter type: initial encounter Core Measure Documentation - Palliative Care Palliative Care/ Comfort Measures: Not Applicable - Core Measures Any of the following diagnoses?: none Exam - Constitutional Vitals: Temp Pulse Resp BP Pulse Ox 98.2 F 102 H 18 143/96 98 04/26/19 05:53 04/26/19 05:53 04/26/19 06:29 04/26/19 05:53 04/26/19 05:53 General appearance: Present: no acute distress, well-nourished - EENT Eyes: Present: PERRL ENT: hearing intact, clear oral mucosa - Neck Neck: Present: supple, normal ROM - Respiratory Respiratory effort: normal Respiratory: bilateral: CTA - Cardiovascular Heart Sounds: Present: S1 & S2. Absent: rub, click - Extremities Extremities: pulses symmetrical, No edema Peripheral Pulses: within normal limits - Abdominal General gastrointestinal: Present: soft, non-tender, non-distended, normal bowel sounds Male genitourinary: Present: normal - Integumentary Integumentary: Present: clear, warm, dry - Musculoskeletal Musculoskeletal: gait normal, strength equal bilaterally - Psychiatric Psychiatric: appropriate mood/affect, intact judgment & insight - Neurologic Neurologic: CNII-XII intact, moves all extremities Plan Activity: advance as tolerated Weight Bearing Status: Weight Bear as Tolerated Diet: regular Follow up with: PRIMARY CARE, [Primary Care Provider] - 3-5 Days Prescriptions: Azithromycin 500 mg PO DAILY #5 tablet NIFEdipine 60 mg PO BID #60 HYDROcodone/APAP 5-325 [[place] 5-325 mg TAB] 1 - 2 each PO Q6HR PRN #14 tablet PRN Reason: Pain
--- NOTE | 2019-04-26 11:21 | XRay Report ---
CHEST 1 VIEW INDICATION: pain/cough. COMPARISON: 12/27/2018. FINDINGS: Support devices: None. Heart: Normal. Lungs/Pleura: There is new, patchy airspace disease within the right mid to lower lung with associate d right pleural effusion. Minimal left basilar opacities are seen with trace left pleural effusion. IMPRESSION: 1. Bibasilar patchy airspace disease is concerning for pneumonia, greater on the right. There are sma ll effusions. Radiographic follow-up is recommended. Signer Name: Enrique Dover MD Signed: 04/26/2019 11:17 AM Workstation Name: [id number]
--- NOTE | 2019-04-26 11:39 | Progress Note ---
Assessment and Plan ESRD on PD HIV Hypocalcemia Anion Gap Metabolic Acidosis Rhabdomyolysis S/p cardiac transplant in 1995 at [facility] per pt Hx of lymphoma s/p chemo in 2017 Plan: - Ok to be discharged from renal standpoint - Pt followed by [facility] team - currently on prograf 6 mg po BID - On renal diet - Replete electrolytes as needed - Castellano Catheter: No Francois Somers MD [phone] Subjective Date of service: 04/26/19 Principal diagnosis: ESRD Interval history: denies acute, issues, ready to go home Objective - Vital Signs Vital signs: Vital Signs - 12hr 04/26/19 04/26/19 04/26/19 00:00 00:13 05:53 Temperature 98.2 F Pulse Rate 102 H Respiratory 18 18 Rate Respiratory 18 Rate [Soft Tissue] Blood Pressure 143/96 O2 Sat by Pulse 98 Oximetry 04/26/19 06:29 Temperature Pulse Rate Respiratory 18 Rate Respiratory Rate [Soft Tissue] Blood Pressure O2 Sat by Pulse Oximetry - General Appearance General appearance: well-developed, well-nourished, appears stated age EENT: ATNC, PERRL, mucous membranes moist Neck: no JVD, no carotid bruit Respiratory: Present: Clear to Ascultation. Absent: Rales, Ronchi Cardiology: regular, S1S2 Gastrointestinal: normoactive bowel sounds, no tenderness, no distended Integumentary: no rash, warm and dry Neurologic: no focal deficit, no asterixis, alert and oriented x3 Musculoskeletal: other (no edema in BLE) Psychiatric: mood/affect appropriate, cooperative - Lab 04/26/19 07:28 04/26/19 07:28 Most recent lab results Calcium 6.3 mg/dL (8.4-10.2) L 04/26/19 07:28 Medications & Allergies - Medications Allergies/Adverse Reactions: Allergies NSAIDS (Non-Steroidal Anti-Inflamma Allergy (Verified 04/24/19 07:39) Hives Home Medications: Home Medications Medication Instructions Recorded Confirmed Last Taken Type Prograf 6 mg PO BID 12/27/18 12/27/18 Unknown History Triumeq 600-50-300 mg Tablet mg PO DAILY 12/27/18 Unknown History Auryxia 210 mg PO TIDWM 04/24/19 04/24/19 Unknown History Calcitriol (Nf) 0.5 mcg PO DAILY 04/24/19 04/24/19 Unknown History Triumeq 600-50-300 mg Tablet 1 tab PO DAILY 04/24/19 04/24/19 Unknown History Azithromycin 500 mg PO DAILY #5 tablet 04/26/19 Unknown Rx Dialysate Lo Be 1.5% Soln 2,000 ml IP Q4H bag 04/26/19 Unknown Rx [Dianeal Low Calcium W/1.5% Dextrose] HYDROcodone/APAP 5-325 [[place] 1 - 2 each PO Q6HR PRN #14 tablet 04/26/19 Unknown Rx 5-325 mg TAB] NIFEdipine 60 mg PO BID #60 04/26/19 Unknown Rx NIFEdipine XL [Procardia Xl] 60 mg PO BID tablet 04/26/19 Unknown Rx Tacrolimus [Prograf] 1 mg PO Q12HR capsule 04/26/19 Unknown Rx Tacrolimus [Prograf] 5 mg PO Q12HR capsule 04/26/19 Unknown Rx Active Medications: Generic Name Dose Route Start Last Admin Trade Name Freq PRN Reason Stop Dose Admin Acetaminophen 650 mg 04/24/19 10:22 Tylenol PO Q4H PRN Pain MILD(1-3)/Fever >100.5/FREIRE Acetaminophen/Hydrocodone Bitart 1 each 04/24/19 11:13 04/25/19 10:55 [place] 5/325 PO 1 each Q6HR PRN Administration PAIN Albuterol 2.5 mg 04/24/19 10:22 Proventil IH Q4HRT PRN Shortness Of Breath Hydromorphone HCl 0.5 mg 04/24/19 22:16 04/26/19 06:29 Dilaudid IV 0.5 mg Q3H PRN Administration Pain , Severe (7-10) Sodium Chloride 1,000 mls @ 100 mls/hr 04/24/19 11:00 04/25/19 09:33 Nacl 0.9% 1000 Ml IV 100 mls/hr DIRECT SHANTE Administration Nifedipine 60 mg 04/24/19 22:00 04/26/19 09:07 Procardia Xl PO 60 mg BID SHANTE Administration Ondansetron HCl 4 mg 04/24/19 10:22 04/25/19 02:01 Zofran IV 4 mg Q8H PRN Administration Nausea And Vomiting Peritoneal Dialysis Solution 2,000 ml 04/24/19 16:00 04/26/19 09:11 Dianeal Low Calcium W/1.5% Dextrose IP Not Given Q4H SHANTE Sodium Chloride 10 ml 04/24/19 22:00 04/26/19 09:14 Sodium Chloride Flush Syringe 10 Ml IV 10 ml BID SHANTE Administration Sodium Chloride 10 ml 04/24/19 10:22 Sodium Chloride Flush Syringe 10 Ml IV PRN PRN LINE FLUSH Tacrolimus 5 mg 04/24/19 22:00 04/26/19 09:08 Prograf PO 5 mg Q12HR SHANTE Administration Tacrolimus 1 mg 04/24/19 22:00 04/26/19 09:08 Prograf PO 1 mg Q12HR SHANTE Administration
[2019-04-26] MEDS ORDERED: levoFLOXacin 750 MG TAB PO SCH (14:00)
[2019-04-26] MEDS ORDERED: levoFLOXacin 500 MG TAB PO SCH (14:15)
--- NOTE | 2019-04-26 15:14 | Progress Note ---
Assessment and Plan Assessment and plan: Bilateral pneumonia. CXR w/ Jose Manuel infiltrate R>L. Start levaquin 750mg daily Consider ID consult Rhabdomyolysis IVF resuscitation therapy, repeat CK level, nephrology consulted, Left Gluteal pain CT scan and Hip x-ray negative Severe malnutrition Increased protein intake, dietary supplementation ESRD on peritoneal dialysis Nephrology consulted in ED, dialysis as per renal team. Hypocalcemia Calcium gluconate administered in ED, repeat bmp in am. HTN (hypertension) Monitor bp q shift, supportive care - Patient Problems (1) Acidosis Current Visit: Yes Status: Acute (2) DVT prophylaxis Current Visit: Yes Status: Acute (3) ESRD on peritoneal dialysis Current Visit: Yes Status: Acute (4) HTN (hypertension) Current Visit: Yes Status: Acute Qualifiers: Hypertension type: essential hypertension Qualified Code(s): I10 - Essential (primary) hypertension (5) Hypocalcemia Current Visit: Yes Status: Acute (6) Rhabdomyolysis Current Visit: Yes Status: Acute Qualifiers: Encounter type: initial encounter History Interval history: Pt c/o of cough Hospitalist Physical - Constitutional Vitals: Temp Pulse Resp BP Pulse Ox 98.6 F 100 H 18 160/98 96 04/26/19 11:52 04/26/19 11:52 04/26/19 11:52 04/26/19 11:52 04/26/19 11:52 General appearance: Present: no acute distress, well-nourished - EENT Eyes: Present: PERRL, EOM intact ENT: hearing intact, clear oral mucosa, dentition normal - Neck Neck: Present: supple, normal ROM - Respiratory Respiratory effort: normal Respiratory: bilateral: CTA - Cardiovascular Rhythm: regular Heart Sounds: Present: S1 & S2. Absent: gallop, rub - Extremities Extremities: no ischemia, No edema, Full ROM - Abdominal General gastrointestinal: soft, non-tender, non-distended, normal bowel sounds - Integumentary Integumentary: Present: clear, warm, dry - Neurologic Neurologic: CNII-XII intact, moves all extremities Results - Labs CBC & Chem 7: 04/26/19 07:28 04/26/19 07:28 Labs: Laboratory Last Values WBC 9.1 K/mm3 (4.5-11.0) 04/26/19 07:28 RBC 3.46 M/mm3 (3.65-5.03) L 04/26/19 07:28 Hgb 11.0 gm/dl (11.8-15.2) L 04/26/19 07:28 Hct 31.4 % (35.5-45.6) L 04/26/19 07:28 MCV 91 fl (84-94) 04/26/19 07:28 MCH 32 pg (28-32) 04/26/19 07:28 MCHC 35 % (32-34) H 04/26/19 07:28 RDW 16.0 % (13.2-15.2) H 04/26/19 07:28 Plt Count 224 K/mm3 (140-440) 04/26/19 07:28 Lymph % (Auto) 29.8 % (13.4-35.0) 04/25/19 07:49 [place] % (Auto) 9.7 % (0.0-7.3) H 04/25/19 07:49 Eos % (Auto) 3.3 % (0.0-4.3) 04/25/19 07:49 Baso % (Auto) 0.8 % (0.0-1.8) 04/25/19 07:49 Lymph # 2.9 K/mm3 (1.2-5.4) 04/25/19 07:49 Mason # 0.9 K/mm3 (0.0-0.8) H 04/25/19 07:49 Eos # 0.3 K/mm3 (0.0-0.4) 04/25/19 07:49 Baso # 0.1 K/mm3 (0.0-0.1) 04/25/19 07:49 Seg Neutrophils % 56.4 % (40.0-70.0) 04/25/19 07:49 Seg Neutrophils # 5.5 K/mm3 (1.8-7.7) 04/25/19 07:49 PT 14.8 Sec. (12.2-14.9) 04/24/19 08:00 INR 1.17 (0.87-1.13) H 04/24/19 08:00 APTT 42.7 Sec. (24.2-36.6) H 04/24/19 08:00 Sodium 134 mmol/L (137-145) L 04/26/19 07:28 Potassium 4.3 mmol/L (3.6-5.0) 04/26/19 07:28 Chloride 93.4 mmol/L (98-107) L 04/26/19 07:28 Carbon Dioxide 19 mmol/L (22-30) L 04/26/19 07:28 Anion Gap 26 mmol/L 04/26/19 07:28 BUN 50 mg/dL (9-20) H 04/26/19 07:28 Creatinine 15.2 mg/dL (0.8-1.5) H 04/26/19 07:28 Estimated GFR 5 ml/min 04/26/19 07:28 BUN/Creatinine Ratio 3 % 04/26/19 07:28 Glucose 100 mg/dL (75-100) 04/26/19 07:28 Calcium 6.3 mg/dL (8.4-10.2) L 04/26/19 07:28 Total Bilirubin < 0.20 mg/dL (0.1-1.2) 04/24/19 06:32 Direct Bilirubin < 0.2 mg/dL (0-0.2) 04/24/19 06:32 Indirect Bilirubin 0.0 mg/dL 04/24/19 06:32 AST 35 units/L (5-40) 04/24/19 06:32 ALT 28 units/L (7-56) 04/24/19 06:32 Alkaline Phosphatase 129 units/L (35-129) 04/24/19 06:32 Total Creatine Kinase 2505 units/L (55-170) H 04/26/19 07:28 Total Protein 7.2 g/dL (6.3-8.2) 04/24/19 06:32 Albumin 3.5 g/dL (3.9-5) L 04/24/19 06:32 Albumin/Globulin Ratio 0.9 % 04/24/19 06:32 PTH Intact 1091 pg/mL (15-65) H 04/25/19 07:49 Active Medications - Current Medications Current Medications: Generic Name Dose Route Start Last Admin Trade Name Freq PRN Reason Stop Dose Admin Acetaminophen 650 mg 04/24/19 10:22 Tylenol PO Q4H PRN Pain MILD(1-3)/Fever >100.5/FREIRE Acetaminophen/Hydrocodone Bitart 1 each 04/24/19 11:13 04/25/19 10:55 [place] 5/325 PO 1 each Q6HR PRN Administration PAIN Albuterol 2.5 mg 04/24/19 10:22 Proventil IH Q4HRT PRN Shortness Of Breath Hydromorphone HCl 0.5 mg 04/24/19 22:16 04/26/19 13:35 Dilaudid IV 0.5 mg Q3H PRN Administration Pain , Severe (7-10) Sodium Chloride 1,000 mls @ 100 mls/hr 04/24/19 11:00 04/25/19 09:33 Nacl 0.9% 1000 Ml IV 100 mls/hr DIRECT SHANTE Administration Levofloxacin/Dextrose 500 mg in 100 mls @ 100 mls/hr 04/26/19 14:30 Levaquin 500mg/100ml IV Q48HR SHANTE Nifedipine 60 mg 04/24/19 22:00 04/26/19 09:07 Procardia Xl PO 60 mg BID SHANTE Administration Ondansetron HCl 4 mg 04/24/19 10:22 04/25/19 02:01 Zofran IV 4 mg Q8H PRN Administration Nausea And Vomiting Sodium Chloride 10 ml 04/24/19 22:00 04/26/19 09:14 Sodium Chloride Flush Syringe 10 Ml IV 10 ml BID SHANTE Administration Sodium Chloride 10 ml 04/24/19 10:22 Sodium Chloride Flush Syringe 10 Ml IV PRN PRN LINE FLUSH Tacrolimus 5 mg 04/24/19 22:00 04/26/19 09:08 Prograf PO 5 mg Q12HR SHANTE Administration Tacrolimus 1 mg 04/24/19 22:00 04/26/19 09:08 Prograf PO 1 mg Q12HR SHANTE Administration
[2019-04-27] MEDS: HYDROmorphone 1 MG/1 ML INJ IV PRN ×5 (01:30→20:48)
[2019-04-27 06:30] LABS: Hematocrit 31.1 % (35.5-45.6); Hemoglobin 10.8 gm/dl (11.8-15.2); Mean Corpuscular HGB Conc 35 % (32-34); Mean Corpuscular Volume 91 fl (84-94); Platelet Count 254 K/mm3 (140-440); Red Blood Count 3.43 M/mm3 (3.65-5.03); Red Cell Distribution Width 16.2 % (13.2-15.2)
[2019-04-27 06:54] LABS: Calcium 6.1 mg/dL (8.4-10.2)
[2019-04-27] MEDS: NIFEdipine XL 30 MG TAB PO SCH ×2 (11:30→21:20)
[2019-04-27] MEDS: TACROLIMUS 1 MG CAP PO SCH ×2 (11:31→21:22)
[2019-04-27] MEDS: TACROLIMUS 5 MG CAP PO SCH ×2 (11:35→21:22)
--- NOTE | 2019-04-27 15:08 | Progress Note ---
Assessment and Plan Assessment: ESRD on Peritoneal Dialysis HIV Hypocalcemia Anion Gap Metabolic Acidosis Rhabdomyolysis S/p cardiac transplant in 1995 at [facility] per pt Hx of lymphoma s/p chemo in 2017 Plan: - Continue on Peritoneal Dialysis- uses his own PD cycler machine - Patient followed by [facility] team-currently on Prograf 6 mg po BID - On renal diet - Replete electrolytes as needed - Castellano Catheter: No - Monitor I/O's -Ok to be discharged from renal standpoint Subjective Date of service: 04/27/19 Principal diagnosis: ESRD Interval history: Patient seen sitting up in chair at bedside. No family at bedside. Objective - Vital Signs Vital signs: Vital Signs - 12hr 04/27/19 04/27/19 04/27/19 04:57 11:26 11:27 Temperature 98.6 F Pulse Rate 107 H 104 H 104 H Respiratory 20 Rate Blood Pressure 135/86 137/93 O2 Sat by Pulse 97 97 98 Oximetry 04/27/19 11:29 Temperature 98.2 F Pulse Rate Respiratory 18 Rate Blood Pressure O2 Sat by Pulse Oximetry - General Appearance General appearance: well-developed, appears stated age, fatigue EENT: hearing intact, vision intact Neck: no JVD, supple Cardiology: regular, S1S2 Gastrointestinal: normoactive bowel sounds, other (PD catheter intact) Integumentary: warm and dry Neurologic: alert and oriented x3 Musculoskeletal: other (No edema) Psychiatric: cooperative - Lab 04/27/19 06:09 04/27/19 06:09 Most recent lab results Calcium 6.1 mg/dL (8.4-10.2) L 04/27/19 06:09 Medications & Allergies - Medications Allergies/Adverse Reactions: Allergies NSAIDS (Non-Steroidal Anti-Inflamma Allergy (Verified 04/24/19 07:39) Hives Home Medications: Home Medications Medication Instructions Recorded Confirmed Last Taken Type Prograf 6 mg PO BID 12/27/18 12/27/18 Unknown History Triumeq 600-50-300 mg Tablet mg PO DAILY 12/27/18 Unknown History Auryxia 210 mg PO TIDWM 04/24/19 04/24/19 Unknown History Calcitriol (Nf) 0.5 mcg PO DAILY 04/24/19 04/24/19 Unknown History Triumeq 600-50-300 mg Tablet 1 tab PO DAILY 04/24/19 04/24/19 Unknown History Azithromycin 500 mg PO DAILY #5 tablet 04/26/19 Unknown Rx Dialysate Lo Be 1.5% Soln 2,000 ml IP Q4H bag 04/26/19 Unknown Rx [Dianeal Low Calcium W/1.5% Dextrose] HYDROcodone/APAP 5-325 [[place] 1 - 2 each PO Q6HR PRN #14 tablet 04/26/19 Unknown Rx 5-325 mg TAB] NIFEdipine 60 mg PO BID #60 04/26/19 Unknown Rx NIFEdipine XL [Procardia Xl] 60 mg PO BID tablet 04/26/19 Unknown Rx Tacrolimus [Prograf] 1 mg PO Q12HR capsule 04/26/19 Unknown Rx Tacrolimus [Prograf] 5 mg PO Q12HR capsule 04/26/19 Unknown Rx Active Medications: Generic Name Dose Route Start Last Admin Trade Name Freq PRN Reason Stop Dose Admin Acetaminophen 650 mg 04/24/19 10:22 Tylenol PO Q4H PRN Pain MILD(1-3)/Fever >100.5/FREIRE Acetaminophen/Hydrocodone Bitart 1 each 04/24/19 11:13 04/25/19 10:55 [place] 5/325 PO 1 each Q6HR PRN Administration Pain, Moderate (4-6) Albuterol 2.5 mg 04/24/19 10:22 Proventil IH Q4HRT PRN Shortness Of Breath Hydromorphone HCl 0.5 mg 04/24/19 22:16 04/27/19 13:48 Dilaudid IV 0.5 mg Q3H PRN Administration Pain , Severe (7-10) Sodium Chloride 1,000 mls @ 100 mls/hr 04/24/19 11:00 04/25/19 09:33 Nacl 0.9% 1000 Ml IV 100 mls/hr DIRECT SHANTE Administration Levofloxacin/Dextrose 500 mg in 100 mls @ 100 mls/hr 04/26/19 14:30 04/26/19 15:00 Levaquin 500mg/100ml IV 100 mls/hr Q48HR SHANTE Administration Nifedipine 60 mg 04/24/19 22:00 04/27/19 11:30 Procardia Xl PO 60 mg BID SHANTE Administration Ondansetron HCl 4 mg 04/24/19 10:22 04/25/19 02:01 Zofran IV 4 mg Q8H PRN Administration Nausea And Vomiting Sodium Chloride 10 ml 04/24/19 22:00 04/27/19 11:36 Sodium Chloride Flush Syringe 10 Ml IV Not Given BID SHANTE Sodium Chloride 10 ml 04/24/19 10:22 04/27/19 01:32 Sodium Chloride Flush Syringe 10 Ml IV 10 ml PRN PRN Administration LINE FLUSH Tacrolimus 5 mg 04/24/19 22:00 04/27/19 11:35 Prograf PO 5 mg Q12HR SHANTE Administration Tacrolimus 1 mg 04/24/19 22:00 04/27/19 11:31 Prograf PO 1 mg Q12HR SHANTE Administration
[2019-04-27] MEDS ORDERED: SIMETHICONE 80 MG CHEW TAB PO PRN (15:30)
--- NOTE | 2019-04-27 18:17 | Progress Note ---
Assessment and Plan Assessment and plan: Bilateral pneumonia. CXR w/ Jose Manuel infiltrate R>L. Start levaquin 750mg daily Consider ID consult Rhabdomyolysis IVF resuscitation therapy, repeat CK level, nephrology consulted, Left Gluteal pain CT scan and Hip x-ray negative Severe malnutrition Increased protein intake, dietary supplementation ESRD on peritoneal dialysis Nephrology consulted in ED, dialysis as per renal team. Hypocalcemia Calcium gluconate administered in ED, repeat bmp in am. HTN (hypertension) Monitor bp q shift, supportive care - Patient Problems (1) Acidosis Current Visit: Yes Status: Acute (2) DVT prophylaxis Current Visit: Yes Status: Acute (3) ESRD on peritoneal dialysis Current Visit: Yes Status: Acute (4) HTN (hypertension) Current Visit: Yes Status: Acute Qualifiers: Hypertension type: essential hypertension Qualified Code(s): I10 - Essential (primary) hypertension (5) Hypocalcemia Current Visit: Yes Status: Acute (6) Rhabdomyolysis Current Visit: Yes Status: Acute Qualifiers: Encounter type: initial encounter History Interval history: Pt c/o of cough Hospitalist Physical - Constitutional Vitals: Temp Pulse Resp BP Pulse Ox 98.2 F 104 H 18 137/93 98 04/27/19 11:29 04/27/19 11:27 04/27/19 11:29 04/27/19 11:26 04/27/19 11:27 General appearance: Present: no acute distress, well-nourished - EENT Eyes: Present: PERRL, EOM intact ENT: hearing intact, clear oral mucosa, dentition normal - Neck Neck: Present: supple, normal ROM - Respiratory Respiratory effort: normal Respiratory: bilateral: CTA - Cardiovascular Rhythm: regular Heart Sounds: Present: S1 & S2. Absent: gallop, rub - Extremities Extremities: no ischemia, No edema, Full ROM - Abdominal General gastrointestinal: soft, non-tender, non-distended, normal bowel sounds - Integumentary Integumentary: Present: clear, warm, dry - Neurologic Neurologic: CNII-XII intact, moves all extremities Results - Labs CBC & Chem 7: 04/27/19 06:09 04/27/19 06:09 Labs: Laboratory Last Values WBC 9.7 K/mm3 (4.5-11.0) 04/27/19 06:09 RBC 3.43 M/mm3 (3.65-5.03) L 04/27/19 06:09 Hgb 10.8 gm/dl (11.8-15.2) L 04/27/19 06:09 Hct 31.1 % (35.5-45.6) L 04/27/19 06:09 MCV 91 fl (84-94) 04/27/19 06:09 MCH 32 pg (28-32) 04/27/19 06:09 MCHC 35 % (32-34) H 04/27/19 06:09 RDW 16.2 % (13.2-15.2) H 04/27/19 06:09 Plt Count 254 K/mm3 (140-440) 04/27/19 06:09 Lymph % (Auto) 29.8 % (13.4-35.0) 04/25/19 07:49 [place] % (Auto) 9.7 % (0.0-7.3) H 04/25/19 07:49 Eos % (Auto) 3.3 % (0.0-4.3) 04/25/19 07:49 Baso % (Auto) 0.8 % (0.0-1.8) 04/25/19 07:49 Lymph # 2.9 K/mm3 (1.2-5.4) 04/25/19 07:49 [place] # 0.9 K/mm3 (0.0-0.8) H 04/25/19 07:49 Eos # 0.3 K/mm3 (0.0-0.4) 04/25/19 07:49 Baso # 0.1 K/mm3 (0.0-0.1) 04/25/19 07:49 Seg Neutrophils % 56.4 % (40.0-70.0) 04/25/19 07:49 Seg Neutrophils # 5.5 K/mm3 (1.8-7.7) 04/25/19 07:49 PT 14.8 Sec. (12.2-14.9) 04/24/19 08:00 INR 1.17 (0.87-1.13) H 04/24/19 08:00 APTT 42.7 Sec. (24.2-36.6) H 04/24/19 08:00 Sodium 136 mmol/L (137-145) L 04/27/19 06:09 Potassium 4.4 mmol/L (3.6-5.0) 04/27/19 06:09 Chloride 92.1 mmol/L (98-107) L 04/27/19 06:09 Carbon Dioxide 18 mmol/L (22-30) L 04/27/19 06:09 Anion Gap 30 mmol/L 04/27/19 06:09 BUN 52 mg/dL (9-20) H 04/27/19 06:09 Creatinine 14.9 mg/dL (0.8-1.5) H 04/27/19 06:09 Estimated GFR 5 ml/min 04/27/19 06:09 BUN/Creatinine Ratio 3 % 04/27/19 06:09 Glucose 110 mg/dL (75-100) H 04/27/19 06:09 Calcium 6.1 mg/dL (8.4-10.2) L 04/27/19 06:09 Ionized Calcium 2.8 mg/dL (4.8-5.6) L* 04/24/19 08:00 Total Bilirubin < 0.20 mg/dL (0.1-1.2) 04/24/19 06:32 Direct Bilirubin < 0.2 mg/dL (0-0.2) 04/24/19 06:32 Indirect Bilirubin 0.0 mg/dL 04/24/19 06:32 AST 35 units/L (5-40) 04/24/19 06:32 ALT 28 units/L (7-56) 04/24/19 06:32 Alkaline Phosphatase 129 units/L (35-129) 04/24/19 06:32 Total Creatine Kinase 1747 units/L (55-170) H 04/27/19 06:09 Total Protein 7.2 g/dL (6.3-8.2) 04/24/19 06:32 Albumin 3.5 g/dL (3.9-5) L 04/24/19 06:32 Albumin/Globulin Ratio 0.9 % 04/24/19 06:32 PTH Intact 1091 pg/mL (15-65) H 04/25/19 07:49 Active Medications - Current Medications Current Medications: Generic Name Dose Route Start Last Admin Trade Name Freq PRN Reason Stop Dose Admin Acetaminophen 650 mg 04/24/19 10:22 Tylenol PO Q4H PRN Pain MILD(1-3)/Fever >100.5/FREIRE Acetaminophen/Hydrocodone Bitart 1 each 04/24/19 11:13 04/25/19 10:55 [place] 5/325 PO 1 each Q6HR PRN Administration Pain, Moderate (4-6) Albuterol 2.5 mg 04/24/19 10:22 Proventil IH Q4HRT PRN Shortness Of Breath Docusate Sodium 100 mg 04/27/19 22:00 Colace PO BID SHANTE Hydromorphone HCl 0.5 mg 04/24/19 22:16 04/27/19 17:31 Dilaudid IV 0.5 mg Q3H PRN Administration Pain , Severe (7-10) Sodium Chloride 1,000 mls @ 100 mls/hr 04/24/19 11:00 04/25/19 09:33 Nacl 0.9% 1000 Ml IV 100 mls/hr DIRECT SHANTE Administration Levofloxacin/Dextrose 500 mg in 100 mls @ 100 mls/hr 04/26/19 14:30 04/26/19 15:00 Levaquin 500mg/100ml IV 100 mls/hr Q48HR SHANTE Administration Nifedipine 60 mg 04/24/19 22:00 04/27/19 11:30 Procardia Xl PO 60 mg BID SHANTE Administration Ondansetron HCl 4 mg 04/24/19 10:22 04/25/19 02:01 Zofran IV 4 mg Q8H PRN Administration Nausea And Vomiting Simethicone 80 mg 04/27/19 15:30 04/27/19 15:40 Mylicon PO 80 mg Q6H PRN Administration Gas pain Sodium Chloride 10 ml 04/24/19 22:00 04/27/19 11:36 Sodium Chloride Flush Syringe 10 Ml IV Not Given BID SHANTE Sodium Chloride 10 ml 04/24/19 10:22 04/27/19 01:32 Sodium Chloride Flush Syringe 10 Ml IV 10 ml PRN PRN Administration LINE FLUSH Tacrolimus 5 mg 04/24/19 22:00 04/27/19 11:35 Prograf PO 5 mg Q12HR SHANTE Administration Tacrolimus 1 mg 04/24/19 22:00 04/27/19 11:31 Prograf PO 1 mg Q12HR SHANTE Administration Nutrition/Malnutrition Assess - Dietary Evaluation Nutrition/Malnutrition Findings: Nutrition Notes Start: 04/27/19 10:50 Freq: Status: Active Protocol: Document 04/27/19 10:50 CT (Rec: 04/27/19 11:06 CT [id number]) Co-Sign 04/27/19 10:50 LP Nutrition Notes Need for Assessment generated from: MD Order Initial or Follow up Assessment Current Diagnosis Hypertension Other Pertinent Diagnosis ESRD on PD, HIV, Lymphoma, Bilat pneu, Rhabdomyolysis, hypocalcemia Current Diet Renal Labs/Tests Na 136 BUN 52 Creatinine 14.9 Glu 110 Pertinent Medications NS 100 ml/hr Height 5 ft 10 in Weight 70.4 kg Usual Body Weight 61.235 kg [place] Body Weight (kg) 75.45 BMI 22.2 Intake Prior to Admission Good Weight Status Appropriate Subjective/Other Information MD consult for malnutrition. Pt was eating Lopes's at time of visit. Stated that he is on a renal diet, but with PD it can be liberalized. Diet change to cardiac diet since labs are normal. Pt stated he is also taking his binder medications. 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 Pt did not eat the tray brought to him because he did not like the food. Pt stated he was not receiving calls for menu selections, was provided with the extension. Burn Absent Trauma Absent GI Symptoms None Food Allergy No Minimum of two criteria No physical signs of malnutrition #1 Nutrition Diagnosis No nutrition diagnosis at this time Is patient on ventilator? No Is Patient Ambulatory and/or Out of Bed Yes REE-([facility]-ambulatory/OOB) [ 2216.825 [id number]] Calculation Used for Recommendations [facility] Additional Notes Protein needs: 85-92 g/kg/day (1.2-1.3 g/kg/day) Fluid needs: per MD Nutrition Intervention Change Diet Order: Change to cardiac diet Revisit per MD consult or patient Sign Off request:
[2019-04-27] MEDS: DOCUSATE SODIUM 100 MG CAP PO SCH (21:20)
[2019-04-28] MEDS: HYDROmorphone 1 MG/1 ML INJ IV PRN ×5 (02:15→20:38)
[2019-04-28 04:41] LABS: Hematocrit 33.9 % (35.5-45.6); Hemoglobin 11.7 gm/dl (11.8-15.2); Mean Corpuscular HGB Conc 35 % (32-34); Mean Corpuscular Volume 91 fl (84-94); Platelet Count 316 K/mm3 (140-440); Red Blood Count 3.74 M/mm3 (3.65-5.03); Red Cell Distribution Width 16.3 % (13.2-15.2)
[2019-04-28 05:15] LABS: Calcium 6.4 mg/dL (8.4-10.2)
--- NOTE | 2019-04-28 08:20 | XRay Report ---
CHEST 1 VIEW INDICATION: pain. COMPARISON: 04/26/2019 FINDINGS: Support devices: None. Heart: Large. Pulmonary vasculature: Mild central vascular congestion. However the pulmonary vessels are more disti nct than on the last exam. Lungs/Pleura: Increased right basal opacification with opacification of the right costophrenic angle, silhouetting of the right heart border and the right hemidiaphragm. The left lung base is clear. The upper lung lynch are clear. Additional findings: None. IMPRESSION: 1. Increased right pleural effusion and right basal airspace disease and/or atelectasis. 2. Cardiomegaly but no CHF. Signer Name: Mark Anthony Jordan MD Signed: 04/28/2019 8:15 AM Workstation Name: [id number]
--- NOTE | 2019-04-28 08:22 | XRay Report ---
ABDOMEN 1 VIEW HISTORY: pain. COMPARISON: None. FINDINGS: Nonobstructive bowel gas pattern. No radiopaque urinary stone disease. A right peritoneal dialysis catheter. IMPRESSION: Negative abdomen. Signer Name: Mark Anthony Jordan MD Signed: 04/28/2019 8:17 AM Workstation Name: [id number]
[2019-04-28] MEDS: TACROLIMUS 5 MG CAP PO SCH ×2 (10:37→22:55)
[2019-04-28] MEDS: TACROLIMUS 1 MG CAP PO SCH ×2 (10:38→22:55)
[2019-04-28] MEDS: NIFEdipine XL 30 MG TAB PO SCH ×2 (10:39→22:56)
[2019-04-28] MEDS: DOCUSATE SODIUM 100 MG CAP PO SCH ×2 (10:39→22:55)
--- NOTE | 2019-04-28 12:27 | Progress Note ---
Assessment and Plan ESRD on Peritoneal Dialysis HIV Hypocalcemia Anion Gap Metabolic Acidosis Rhabdomyolysis S/p cardiac transplant in 1995 at [facility] per pt Hx of lymphoma s/p chemo in 2017 Plan: - Continue on Peritoneal Dialysis- uses his own PD cycler machine, tolerating well - Patient followed by [facility]-currently on Prograf 6 mg po BID - On renal diet - Replete electrolytes as needed - Csatellano Catheter: No - Monitor I/O's - cont current management Francois bustillos MD [phone] Subjective Date of service: 04/28/19 Principal diagnosis: ESRD Interval history: c/o some weakness, tolerating PD Objective - Vital Signs Vital signs: Vital Signs - 12hr 04/28/19 04/28/19 04/28/19 02:15 05:12 05:18 Temperature 99.0 F Pulse Rate 109 H Respiratory 18 22 18 Rate Blood Pressure 139/82 O2 Sat by Pulse 98 Oximetry - General Appearance General appearance: well-developed, well-nourished, appears stated age EENT: ATNC, PERRL, mucous membranes moist Neck: no JVD, no carotid bruit Respiratory: Present: Clear to Ascultation. Absent: Rales, Ronchi Cardiology: regular, S1S2 Gastrointestinal: normoactive bowel sounds Integumentary: no rash, warm and dry Neurologic: no focal deficit, no asterixis, alert and oriented x3 Musculoskeletal: other (no edema in BLE) Psychiatric: mood/affect appropriate, cooperative - Lab 04/28/19 04:06 04/28/19 04:06 Most recent lab results Calcium 6.4 mg/dL (8.4-10.2) L 04/28/19 04:06 Medications & Allergies - Medications Allergies/Adverse Reactions: Allergies NSAIDS (Non-Steroidal Anti-Inflamma Allergy (Verified 04/24/19 07:39) Hives Home Medications: Home Medications Medication Instructions Recorded Confirmed Last Taken Type Prograf 6 mg PO BID 12/27/18 04/27/19 Unknown History Triumeq 600-50-300 mg Tablet 1 tab PO DAILY 12/27/18 04/27/19 Unknown History Auryxia 210 mg PO TIDWM 04/24/19 04/24/19 Unknown History Calcitriol (Nf) 0.5 mcg PO DAILY 04/24/19 04/24/19 Unknown History Triumeq 600-50-300 mg Tablet 1 tab PO DAILY 04/24/19 04/24/19 Unknown History Azithromycin 500 mg PO DAILY #5 tablet 04/26/19 Unknown Rx Dialysate Lo Be 1.5% Soln 2,000 ml IP Q4H bag 04/26/19 Unknown Rx [Dianeal Low Calcium W/1.5% Dextrose] HYDROcodone/APAP 5-325 [[place] 1 - 2 each PO Q6HR PRN #14 tablet 04/26/19 Unknown Rx 5-325 mg TAB] NIFEdipine 60 mg PO BID #60 04/26/19 Unknown Rx NIFEdipine XL [Procardia Xl] 60 mg PO BID tablet 04/26/19 Unknown Rx Tacrolimus [Prograf] 1 mg PO Q12HR capsule 04/26/19 Unknown Rx Tacrolimus [Prograf] 5 mg PO Q12HR capsule 04/26/19 Unknown Rx Active Medications: Generic Name Dose Route Start Last Admin Trade Name Freq PRN Reason Stop Dose Admin Acetaminophen 650 mg 04/24/19 10:22 Tylenol PO Q4H PRN Pain MILD(1-3)/Fever >100.5/FREIRE Acetaminophen/Hydrocodone Bitart 1 each 04/24/19 11:13 04/25/19 10:55 [place] 5/325 PO 1 each Q6HR PRN Administration Pain, Moderate (4-6) Albuterol 2.5 mg 04/24/19 10:22 Proventil IH Q4HRT PRN Shortness Of Breath Docusate Sodium 100 mg 04/27/19 22:00 04/28/19 10:39 Colace PO 100 mg BID SHANTE Administration Hydromorphone HCl 0.5 mg 04/24/19 22:16 04/28/19 10:31 Dilaudid IV 0.5 mg Q3H PRN Administration Pain , Severe (7-10) Sodium Chloride 1,000 mls @ 100 mls/hr 04/24/19 11:00 04/25/19 09:33 Nacl 0.9% 1000 Ml IV 100 mls/hr DIRECT SHANTE Administration Levofloxacin/Dextrose 500 mg in 100 mls @ 100 mls/hr 04/26/19 14:30 04/28/19 10:37 Levaquin 500mg/100ml IV 100 mls/hr Q48HR SHANTE Administration Nifedipine 60 mg 04/24/19 22:00 04/28/19 10:39 Procardia Xl PO 60 mg BID SHANTE Administration Ondansetron HCl 4 mg 04/24/19 10:22 04/25/19 02:01 Zofran IV 4 mg Q8H PRN Administration Nausea And Vomiting Simethicone 80 mg 04/27/19 15:30 04/27/19 15:40 Mylicon PO 80 mg Q6H PRN Administration Gas pain Sodium Chloride 10 ml 04/24/19 22:00 04/28/19 10:34 Sodium Chloride Flush Syringe 10 Ml IV 10 ml BID SHANTE Administration Sodium Chloride 10 ml 04/24/19 10:22 04/27/19 01:32 Sodium Chloride Flush Syringe 10 Ml IV 10 ml PRN PRN Administration LINE FLUSH Tacrolimus 5 mg 04/24/19 22:00 04/28/19 10:37 Prograf PO 5 mg Q12HR SHANTE Administration Tacrolimus 1 mg 04/24/19 22:00 04/28/19 10:38 Prograf PO 1 mg Q12HR SHANTE Administration
--- NOTE | 2019-04-28 15:01 | Consultation ---
History of Present Illness - Reason for Consult Consult date: 04/28/19 Pneumonia Requesting physician: STEPHANIE CORRAL - History of Present Illness The patient is a 24-year-old male with hypertension, ESRD on peritoneal dialysis, HIV on medications, lymphoma status post chemotherapy, status post cardiac transplant in 1995, follows up at [place] [facility] on Prograf was admitted to the hospital on 04/24/2019 with complaints of buttock pain and muscle soreness. He was found to have elevated CPK. He was started on IV fluids. He was being planned for discharge, however patient started complaining of cough along with pleuritic chest pain. Chest x-ray showed findings concerning for pneumonia and hence infectious diseases was consulted. With regards to his HIV, he is compliant and well controlled on Triumeq. He has had the pneumonia vaccination. Denies any sick contacts. Last hospitalization was in December. Has had pneumonia before. Was empirically started on Levofloxacin, hasn't felt much better. Pleuritic chest pain, shallow breathing, cough + non productive. Started on Thursday04/25/2019. CXR today with increasing opacities and RLL effusion. Review of Systems: General: no fevers,chills or rigors HEENT: no new visual disturbance Respiratory: dry cough, no sputum, hemoptysis. Mild shortness of breath + Cardiovascular: Pleuritic chest pain, no syncope Gastrointestinal: No nausea, vomiting or diarrhea Genitourinary: No dysuria or hematuria Musculoskeletal: No new or worsening neck pain or back pain Neurologic: No headaches, seizures Hematologic: No easy bruising or bleeding Endocrine: No night sweats or acute weight loss Skin: negative for rash, jaundice Psychiatric: No suicidal or homicidal ideation Past History Past Medical History: other (see HPI) Past Surgical History: Other (CArdiac surgery) Social history: single. denies: smoking, alcohol abuse, prescription drug abuse Family history: hypertension Medications and Allergies Allergies Allergy/AdvReac Type Severity Reaction Status Date / Time NSAIDS (Non-Steroidal Allergy Hives Verified 04/24/19 07:39 Anti-Inflamma Home Medications Medication Instructions Recorded Confirmed Last Taken Type Prograf 6 mg PO BID 12/27/18 04/27/19 Unknown History Triumeq 600-50-300 mg Tablet 1 tab PO DAILY 12/27/18 04/27/19 Unknown History Auryxia 210 mg PO TIDWM 04/24/19 04/24/19 Unknown History Calcitriol (Nf) 0.5 mcg PO DAILY 04/24/19 04/24/19 Unknown History Triumeq 600-50-300 mg Tablet 1 tab PO DAILY 04/24/19 04/24/19 Unknown History Azithromycin 500 mg PO DAILY #5 tablet 04/26/19 Unknown Rx Dialysate Lo Be 1.5% Soln 2,000 ml IP Q4H bag 04/26/19 Unknown Rx [Dianeal Low Calcium W/1.5% Dextrose] HYDROcodone/APAP 5-325 [[place] 1 - 2 each PO Q6HR PRN #14 tablet 04/26/19 Unknown Rx 5-325 mg TAB] NIFEdipine 60 mg PO BID #60 04/26/19 Unknown Rx NIFEdipine XL [Procardia Xl] 60 mg PO BID tablet 04/26/19 Unknown Rx Tacrolimus [Prograf] 1 mg PO Q12HR capsule 04/26/19 Unknown Rx Tacrolimus [Prograf] 5 mg PO Q12HR capsule 04/26/19 Unknown Rx Active Meds: Active Medications Acetaminophen (Tylenol) 650 mg PO Q4H PRN PRN Reason: Pain MILD(1-3)/Fever >100.5/FREIRE Acetaminophen/Hydrocodone Bitart ([place] 5/325) 1 each PO Q6HR PRN PRN Reason: Pain, Moderate (4-6) Last Admin: 04/25/19 10:55 Dose: 1 each Documented by: Albuterol (Proventil) 2.5 mg IH Q4HRT PRN PRN Reason: Shortness Of Breath Docusate Sodium (Colace) 100 mg PO BID [facility] Last Admin: 04/28/19 10:39 Dose: 100 mg Documented by: Hydromorphone HCl (Dilaudid) 0.5 mg IV Q3H PRN PRN Reason: Pain , Severe (7-10) Last Admin: 04/28/19 10:31 Dose: 0.5 mg Documented by: Sodium Chloride (Nacl 0.9% 1000 Ml) 1,000 mls @ 100 mls/hr IV DIRECT [facility] Last Admin: 04/25/19 09:33 Dose: 100 mls/hr Documented by: Levofloxacin/Dextrose (Levaquin 500mg/100ml) 500 mg in 100 mls @ 100 mls/hr IV Q48HR [facility] Last Admin: 04/28/19 10:37 Dose: 100 mls/hr Documented by: Nifedipine (Procardia Xl) 60 mg PO BID [facility] Last Admin: 04/28/19 10:39 Dose: 60 mg Documented by: Ondansetron HCl (Zofran) 4 mg IV Q8H PRN PRN Reason: Nausea And Vomiting Last Admin: 04/25/19 02:01 Dose: 4 mg Documented by: Simethicone (Mylicon) 80 mg PO Q6H PRN PRN Reason: Gas pain Last Admin: 04/27/19 15:40 Dose: 80 mg Documented by: Sodium Chloride (Sodium Chloride Flush Syringe 10 Ml) 10 ml IV BID [facility] Last Admin: 04/28/19 10:34 Dose: 10 ml Documented by: Sodium Chloride (Sodium Chloride Flush Syringe 10 Ml) 10 ml IV PRN PRN PRN Reason: LINE FLUSH Last Admin: 04/27/19 01:32 Dose: 10 ml Documented by: Tacrolimus (Prograf) 5 mg PO Q12HR [facility] Last Admin: 04/28/19 10:37 Dose: 5 mg Documented by: Tacrolimus (Prograf) 1 mg PO Q12HR [facility] Last Admin: 04/28/19 10:38 Dose: 1 mg Documented by: Physical Examination - Physical Exam Narrative exam: Physical Exam: Constitutional: Alert, cooperative. No acute distress Head, Ears, Nose: Normocephalic, atraumatic. External ears, nose normal Eyes: Conjunctivae/corneas clear. No icterus. No ptosis. Neck: Supple, no meningeal signs Oral: dentition fair, no thrush Cardiovascular: S1, S2 normal. Respiratory: b/l basal crackles, R>>L GI: Soft, non-tender; bowel sounds normal. No peritoneal signs. PD cath site clean Musculoskeletal: No pedal edema, no cyanosis. Skin: No rash or abscess Hem/Lymphatic: No palpable cervical or supraclavicular nodes. No lymphangitis Psych: Mood ok. Affect normal Neurological: Awake, alert, oriented. No gross abnormality - Constitutional Vitals: Vital Signs Temp Pulse Resp BP Pulse Ox 99.4 F 107 H 18 135/85 97 04/28/19 12:30 04/28/19 12:30 04/28/19 12:30 04/28/19 12:30 04/28/19 12:30 Temperature -Last 24 Hours Temperature 99.4 F Temperature 99.0 F Temperature 98.1 F Temperature 98.1 F Results - Labs CBC & Chem 7: 04/28/19 04:06 04/28/19 04:06 Labs: Abnormal lab results 04/28/19 04/28/19 04/28/19 Range/Units 04:06 04:06 04:06 WBC 11.4 H (4.5-11.0) K/mm3 Hgb 11.7 L (11.8-15.2) gm/dl Hct 33.9 L (35.5-45.6) % MCHC 35 H (32-34) % RDW 16.3 H (13.2-15.2) % Sodium 134 L (137-145) mmol/L Chloride 93.3 L (98-107) mmol/L Carbon Dioxide 21 L (22-30) mmol/L BUN 52 H (9-20) mg/dL Creatinine 14.8 H (0.8-1.5) mg/dL Glucose 115 H (75-100) mg/dL Calcium 6.4 L (8.4-10.2) mg/dL Total Creatine Kinase 1355 H (55-170) units/L - Imaging and Cardiology Chest x-ray: report reviewed, image reviewed (increasing R basilar opacity with effusion) Assessment and Plan Cultures: None this admission A/P: 24-year-old male with hypertension, ESRD on peritoneal dialysis, HIV on medications, lymphoma status post chemotherapy, status post cardiac transplant in 1995, follows up at [place] [facility] on Prograf: #R sided pneumonia, ?parapneumonic effusion: treat with Ceftriaxone and Azithromycin. Repeat CXR today appears worse. Mild fever and leucocytosis. #ESRD on PD #HIV: compliant with Triumeq, VL undetectable since 2016. Not on any prophylaxis, doesn't remember his CD4 count. #Cardiac transplant, immunocompromised host: on prograf Recs: - d/c Levofloxacin - started IV Ceftriaxone 1 gm daily + PO Azithromycin 500 mg daily - consider US guided R sided thoracentesis and send pleural fluid for analysis: protein, LDH, culture - continue Triumeq - patient using his own supply d/w Dr. Nav Garcia MD, FACP [facility] C: [phone] O: [phone] F: [phone]
--- NOTE | 2019-04-28 16:23 | Progress Note ---
Assessment and Plan Assessment and plan: Bilateral pneumonia. Cont ABX, started IV Ceftriaxone 1 gm daily + PO Azithro mycin 500 mg daily ID consulted Right parapneumonic effusion US guided R sided thoracentesis and send pleural fluid for analysis: protein, LDH, culture HIV disease Cont per ID Rhabdomyolysis IVF resuscitation therapy, repeat CK level, nephrology consulted, Left Gluteal pain CT scan and Hip x-ray negative Severe malnutrition Increased protein intake, dietary supplementation ESRD on peritoneal dialysis Nephrology consulted in ED, dialysis as per renal team. Hypocalcemia Calcium gluconate administered in ED, repeat bmp in am. HTN (hypertension) Monitor bp q shift, supportive care s/p cardiac transplant - Patient Problems (1) Acidosis Current Visit: Yes Status: Acute (2) DVT prophylaxis Current Visit: Yes Status: Acute (3) ESRD on peritoneal dialysis Current Visit: Yes Status: Acute (4) HTN (hypertension) Current Visit: Yes Status: Acute Qualifiers: Hypertension type: essential hypertension Qualified Code(s): I10 - Essential (primary) hypertension (5) Hypocalcemia Current Visit: Yes Status: Acute (6) Rhabdomyolysis Current Visit: Yes Status: Acute Qualifiers: Encounter type: initial encounter History Interval history: Pt c/o of cough Hospitalist Physical - Constitutional Vitals: Temp Pulse Resp BP Pulse Ox 99.4 F 107 H 18 135/85 97 04/28/19 12:30 04/28/19 12:30 04/28/19 12:30 04/28/19 12:30 04/28/19 12:30 General appearance: Present: no acute distress, well-nourished - EENT Eyes: Present: PERRL, EOM intact ENT: hearing intact, clear oral mucosa, dentition normal - Neck Neck: Present: supple, normal ROM - Respiratory Respiratory effort: normal Respiratory: bilateral: CTA - Cardiovascular Rhythm: regular Heart Sounds: Present: S1 & S2. Absent: gallop, rub - Extremities Extremities: no ischemia, No edema, Full ROM - Abdominal General gastrointestinal: soft, non-tender, non-distended, normal bowel sounds - Integumentary Integumentary: Present: clear, warm, dry - Neurologic Neurologic: CNII-XII intact, moves all extremities Results - Labs CBC & Chem 7: 04/28/19 04:06 04/28/19 04:06 Labs: Laboratory Last Values WBC 11.4 K/mm3 (4.5-11.0) H 04/28/19 04:06 RBC 3.74 M/mm3 (3.65-5.03) 04/28/19 04:06 Hgb 11.7 gm/dl (11.8-15.2) L 04/28/19 04:06 Hct 33.9 % (35.5-45.6) L 04/28/19 04:06 MCV 91 fl (84-94) 04/28/19 04:06 MCH 31 pg (28-32) 04/28/19 04:06 MCHC 35 % (32-34) H 04/28/19 04:06 RDW 16.3 % (13.2-15.2) H 04/28/19 04:06 Plt Count 316 K/mm3 (140-440) 04/28/19 04:06 Lymph % (Auto) 29.8 % (13.4-35.0) 04/25/19 07:49 [place] % (Auto) 9.7 % (0.0-7.3) H 04/25/19 07:49 Eos % (Auto) 3.3 % (0.0-4.3) 04/25/19 07:49 Baso % (Auto) 0.8 % (0.0-1.8) 04/25/19 07:49 Lymph # 2.9 K/mm3 (1.2-5.4) 04/25/19 07:49 [place] # 0.9 K/mm3 (0.0-0.8) H 04/25/19 07:49 Eos # 0.3 K/mm3 (0.0-0.4) 04/25/19 07:49 Baso # 0.1 K/mm3 (0.0-0.1) 04/25/19 07:49 Seg Neutrophils % 56.4 % (40.0-70.0) 04/25/19 07:49 Seg Neutrophils # 5.5 K/mm3 (1.8-7.7) 04/25/19 07:49 PT 14.8 Sec. (12.2-14.9) 04/24/19 08:00 INR 1.17 (0.87-1.13) H 04/24/19 08:00 APTT 42.7 Sec. (24.2-36.6) H 04/24/19 08:00 Sodium 134 mmol/L (137-145) L 04/28/19 04:06 Potassium 4.2 mmol/L (3.6-5.0) 04/28/19 04:06 Chloride 93.3 mmol/L (98-107) L 04/28/19 04:06 Carbon Dioxide 21 mmol/L (22-30) L 04/28/19 04:06 Anion Gap 24 mmol/L 04/28/19 04:06 BUN 52 mg/dL (9-20) H 04/28/19 04:06 Creatinine 14.8 mg/dL (0.8-1.5) H 04/28/19 04:06 Estimated GFR 5 ml/min 04/28/19 04:06 BUN/Creatinine Ratio 4 % 04/28/19 04:06 Glucose 115 mg/dL (75-100) H 04/28/19 04:06 Calcium 6.4 mg/dL (8.4-10.2) L 04/28/19 04:06 Ionized Calcium 2.8 mg/dL (4.8-5.6) L* 04/24/19 08:00 Total Bilirubin < 0.20 mg/dL (0.1-1.2) 04/24/19 06:32 Direct Bilirubin < 0.2 mg/dL (0-0.2) 04/24/19 06:32 Indirect Bilirubin 0.0 mg/dL 04/24/19 06:32 AST 35 units/L (5-40) 04/24/19 06:32 ALT 28 units/L (7-56) 04/24/19 06:32 Alkaline Phosphatase 129 units/L (35-129) 04/24/19 06:32 Total Creatine Kinase 1355 units/L (55-170) H 04/28/19 04:06 Total Protein 7.2 g/dL (6.3-8.2) 04/24/19 06:32 Albumin 3.5 g/dL (3.9-5) L 04/24/19 06:32 Albumin/Globulin Ratio 0.9 % 04/24/19 06:32 PTH Intact 1091 pg/mL (15-65) H 04/25/19 07:49 Tacrolimus (Send Out) 4.3 mcg/L 04/26/19 07:28 Active Medications - Current Medications Current Medications: Generic Name Dose Route Start Last Admin Trade Name Freq PRN Reason Stop Dose Admin Acetaminophen 650 mg 04/24/19 10:22 Tylenol PO Q4H PRN Pain MILD(1-3)/Fever >100.5/FREIRE Acetaminophen/Hydrocodone Bitart 1 each 04/24/19 11:13 04/25/19 10:55 [place] 5/325 PO 1 each Q6HR PRN Administration Pain, Moderate (4-6) Albuterol 2.5 mg 04/24/19 10:22 Proventil IH Q4HRT PRN Shortness Of Breath Azithromycin 500 mg 04/28/19 16:00 Zithromax PO QDAY SHANTE Docusate Sodium 100 mg 04/27/19 22:00 04/28/19 10:39 Colace PO 100 mg BID SHANTE Administration Hydromorphone HCl 0.5 mg 04/24/19 22:16 04/28/19 14:55 Dilaudid IV 0.5 mg Q3H PRN Administration Pain , Severe (7-10) Sodium Chloride 1,000 mls @ 100 mls/hr 04/24/19 11:00 04/25/19 09:33 Nacl 0.9% 1000 Ml IV 100 mls/hr DIRECT SHANTE Administration Ceftriaxone Sodium 1 gm in 50 mls @ 100 mls/hr 04/28/19 16:00 Rocephin/Ns 1 Gm/50 Ml IV Q24HR SHANTE Protocol Nifedipine 60 mg 04/24/19 22:00 04/28/19 10:39 Procardia Xl PO 60 mg BID SHANTE Administration Ondansetron HCl 4 mg 04/24/19 10:22 04/25/19 02:01 Zofran IV 4 mg Q8H PRN Administration Nausea And Vomiting Simethicone 80 mg 04/27/19 15:30 04/27/19 15:40 Mylicon PO 80 mg Q6H PRN Administration Gas pain Sodium Chloride 10 ml 04/24/19 22:00 04/28/19 10:34 Sodium Chloride Flush Syringe 10 Ml IV 10 ml BID SHANTE Administration Sodium Chloride 10 ml 04/24/19 10:22 04/27/19 01:32 Sodium Chloride Flush Syringe 10 Ml IV 10 ml PRN PRN Administration LINE FLUSH Tacrolimus 5 mg 04/24/19 22:00 04/28/19 10:37 Prograf PO 5 mg Q12HR SHANTE Administration Tacrolimus 1 mg 04/24/19 22:00 04/28/19 10:38 Prograf PO 1 mg Q12HR SHANTE Administration Nutrition/Malnutrition Assess - Dietary Evaluation Nutrition/Malnutrition Findings: Nutrition Notes Start: 04/27/19 10:5 0 Freq: Status: Active Protocol: Document 04/27/19 10:50 CT (Rec: 04/27/19 11:06 CT [id number]) Co-Sign 04/27/19 10:50 LP Nutrition Notes Need for Assessment generated from: MD Order Initial or Follow up Assessment Current Diagnosis Hypertension Other Pertinent Diagnosis ESRD on PD, HIV, Lymphoma, Bilat pneu, Rhabdomyolysis, hypocalcemia Current Diet Renal Labs/Tests Na 136 BUN 52 Creatinine 14.9 Glu 110 Pertinent Medications NS 100 ml/hr Height 5 ft 10 in Weight 70.4 kg Usual Body Weight 61.235 kg [place] Body Weight (kg) 75.45 BMI 22.2 Intake Prior to Admission Good Weight Status Appropriate Subjective/Other Information MD consult for malnutrition. Pt was eating Lopes's at time of visit. Stated that he is on a renal diet, but with PD it can be liberalized. Diet change to cardiac diet since labs are normal. Pt stated he is also taking his binder medications. Pt was eating well [employer] and has a good appetite. Pt did not eat the tray brought to him because he did not like the food. Pt stated he was not receiving calls for menu selections, was provided with the extension. Burn Absent Trauma Absent GI Symptoms None Food Allergy No Minimum of two criteria No physical signs of malnutrition #1 Nutrition Diagnosis No nutrition diagnosis at this time Is patient on ventilator? No Is Patient Ambulatory and/or Out of Bed Yes REE-([place]-St. Jeor-ambulatory/OOB) [ 2216.825 NUTR.MSJOOB] Calculation Used for Recommendations [place]-St Jeor Additional Notes Protein needs: 85-92 g/kg/day (1.2-1.3 g/kg/day) Fluid needs: per MD Nutrition Intervention Change Diet Order: Change to cardiac diet Revisit per MD consult or patient Sign Off request:
[2019-04-28] MEDS: cefTRIAXone/NS 1 GM/50 ML 1 GM/50 ML BAG IV SCH (17:07)
[2019-04-28] MEDS: AZITHROMYCIN 250 MG TAB PO SCH (17:07)
[2019-04-29] MEDS: HYDROmorphone 1 MG/1 ML INJ IV PRN ×3 (00:22→17:27)
[2019-04-29 09:29] LABS: Hematocrit 30.6 % (35.5-45.6); Hemoglobin 10.7 gm/dl (11.8-15.2); Mean Corpuscular HGB Conc 35 % (32-34); Mean Corpuscular Volume 91 fl (84-94); Platelet Count 284 K/mm3 (140-440); Red Blood Count 3.37 M/mm3 (3.65-5.03); Red Cell Distribution Width 15.9 % (13.2-15.2)
[2019-04-29 09:48] LABS: Calcium 6.6 mg/dL (8.4-10.2)
[2019-04-29] MEDS: cefTRIAXone/NS 1 GM/50 ML 1 GM/50 ML BAG IV SCH (10:56)
[2019-04-29] MEDS: NIFEdipine XL 30 MG TAB PO SCH ×2 (10:57→22:27)
[2019-04-29] MEDS: TACROLIMUS 5 MG CAP PO SCH ×2 (10:57→22:26)
[2019-04-29] MEDS: DOCUSATE SODIUM 100 MG CAP PO SCH ×2 (10:57→22:37)
[2019-04-29] MEDS: AZITHROMYCIN 250 MG TAB PO SCH (10:57)
[2019-04-29] MEDS: TACROLIMUS 1 MG CAP PO SCH ×2 (10:58→22:26)
--- NOTE | 2019-04-29 11:33 | Progress Note ---
Assessment and Plan Assessment and plan: Bilateral pneumonia. Cont ABX, started IV Ceftriaxone 1 gm daily + PO Azithro mycin 500 mg daily ID following Right parapneumonic effusion US guided R sided thoracentesis and send pleural fluid for analysis: protein, LDH, culture HIV disease Cont per ID Rhabdomyolysis IVF resuscitation therapy, repeat CK level, nephrology following Left Gluteal pain CT scan and Hip x-ray negative. Resolved. Severe malnutrition Increased protein intake, dietary supplementation ESRD on peritoneal dialysis Nephrology consulted in ED, dialysis as per renal team. Hypocalcemia Calcium gluconate administered in ED, repeat bmp in am. HTN (hypertension) Monitor bp q shift, supportive care s/p cardiac transplant Continue Prograf - Patient Problems (1) Acidosis Current Visit: Yes Status: Acute (2) DVT prophylaxis Current Visit: Yes Status: Acute (3) ESRD on peritoneal dialysis Current Visit: Yes Status: Acute (4) HTN (hypertension) Current Visit: Yes Status: Acute Qualifiers: Hypertension type: essential hypertension Qualified Code(s): I10 - Essential (primary) hypertension (5) Hypocalcemia Current Visit: Yes Status: Acute (6) Rhabdomyolysis Current Visit: Yes Status: Acute Qualifiers: Encounter type: initial encounter History Interval history: Pt initially refused thoracentesis but now compliant. Hospitalist Physical - Constitutional Vitals: Temp Pulse Resp BP Pulse Ox 98.3 F 101 H 20 130/83 96 04/29/19 05:42 04/29/19 05:42 04/29/19 05:42 04/29/19 05:42 04/29/19 05:42 General appearance: Present: no acute distress, well-nourished - EENT Eyes: Present: PERRL, EOM intact ENT: hearing intact, clear oral mucosa, dentition normal - Neck Neck: Present: supple, normal ROM - Respiratory Respiratory effort: normal Respiratory: bilateral: CTA - Cardiovascular Rhythm: regular Heart Sounds: Present: S1 & S2. Absent: gallop, rub - Extremities Extremities: no ischemia, No edema, Full ROM - Abdominal General gastrointestinal: soft, non-tender, non-distended, normal bowel sounds - Integumentary Integumentary: Present: clear, warm, dry - Neurologic Neurologic: CNII-XII intact, moves all extremities Results - Labs CBC & Chem 7: 04/29/19 08:15 04/29/19 08:15 Labs: Laboratory Last Values WBC 8.8 K/mm3 (4.5-11.0) 04/29/19 08:15 RBC 3.37 M/mm3 (3.65-5.03) L 04/29/19 08:15 Hgb 10.7 gm/dl (11.8-15.2) L 04/29/19 08:15 Hct 30.6 % (35.5-45.6) L 04/29/19 08:15 MCV 91 fl (84-94) 04/29/19 08:15 MCH 32 pg (28-32) 04/29/19 08:15 MCHC 35 % (32-34) H 04/29/19 08:15 RDW 15.9 % (13.2-15.2) H 04/29/19 08:15 Plt Count 284 K/mm3 (140-440) 04/29/19 08:15 Lymph % (Auto) 29.8 % (13.4-35.0) 04/25/19 07:49 [place] % (Auto) 9.7 % (0.0-7.3) H 04/25/19 07:49 Eos % (Auto) 3.3 % (0.0-4.3) 04/25/19 07:49 Baso % (Auto) 0.8 % (0.0-1.8) 04/25/19 07:49 Lymph # 2.9 K/mm3 (1.2-5.4) 04/25/19 07:49 [place] # 0.9 K/mm3 (0.0-0.8) H 04/25/19 07:49 Eos # 0.3 K/mm3 (0.0-0.4) 04/25/19 07:49 Baso # 0.1 K/mm3 (0.0-0.1) 04/25/19 07:49 Seg Neutrophils % 56.4 % (40.0-70.0) 04/25/19 07:49 Seg Neutrophils # 5.5 K/mm3 (1.8-7.7) 04/25/19 07:49 PT 14.8 Sec. (12.2-14.9) 04/24/19 08:00 INR 1.17 (0.87-1.13) H 04/24/19 08:00 APTT 42.7 Sec. (24.2-36.6) H 04/24/19 08:00 Sodium 135 mmol/L (137-145) L 04/29/19 08:15 Potassium 4.3 mmol/L (3.6-5.0) 04/29/19 08:15 Chloride 90.0 mmol/L (98-107) L 04/29/19 08:15 Carbon Dioxide 19 mmol/L (22-30) L 04/29/19 08:15 Anion Gap 30 mmol/L 04/29/19 08:15 BUN 55 mg/dL (9-20) H 04/29/19 08:15 Creatinine 14.7 mg/dL (0.8-1.5) H 04/29/19 08:15 Estimated GFR 5 ml/min 04/29/19 08:15 BUN/Creatinine Ratio 4 % 04/29/19 08:15 Glucose 82 mg/dL (75-100) 04/29/19 08:15 Calcium 6.6 mg/dL (8.4-10.2) L 04/29/19 08:15 Ionized Calcium 2.8 mg/dL (4.8-5.6) L* 04/24/19 08:00 Total Bilirubin < 0.20 mg/dL (0.1-1.2) 04/24/19 06:32 Direct Bilirubin < 0.2 mg/dL (0-0.2) 04/24/19 06:32 Indirect Bilirubin 0.0 mg/dL 04/24/19 06:32 AST 35 units/L (5-40) 04/24/19 06:32 ALT 28 units/L (7-56) 04/24/19 06:32 Alkaline Phosphatase 129 units/L (35-129) 04/24/19 06:32 Total Creatine Kinase 1355 units/L (55-170) H 04/28/19 04:06 Total Protein 7.2 g/dL (6.3-8.2) 04/24/19 06:32 Albumin 3.5 g/dL (3.9-5) L 04/24/19 06:32 Albumin/Globulin Ratio 0.9 % 04/24/19 06:32 PTH Intact 1091 pg/mL (15-65) H 04/25/19 07:49 Tacrolimus (Send Out) 4.3 mcg/L 04/26/19 07:28 Active Medications - Current Medications Current Medications: Generic Name Dose Route Start Last Admin Trade Name Freq PRN Reason Stop Dose Admin Acetaminophen 650 mg 04/24/19 10:22 Tylenol PO Q4H PRN Pain MILD(1-3)/Fever >100.5/FREIRE Acetaminophen/Hydrocodone Bitart 1 each 04/24/19 11:13 04/25/19 10:55 [place] 5/325 PO 1 each Q6HR PRN Administration Pain, Moderate (4-6) Albuterol 2.5 mg 04/24/19 10:22 Proventil IH Q4HRT PRN Shortness Of Breath Azithromycin 500 mg 04/28/19 16:00 04/29/19 10:57 Zithromax PO 500 mg QDAY SHANTE Administration Docusate Sodium 100 mg 04/27/19 22:00 04/29/19 10:57 Colace PO 100 mg BID SHANTE Administration Hydromorphone HCl 0.5 mg 04/24/19 22:16 04/29/19 08:36 Dilaudid IV 0.5 mg Q3H PRN Administration Pain , Severe (7-10) Sodium Chloride 1,000 mls @ 100 mls/hr 04/24/19 11:00 04/25/19 09:33 Nacl 0.9% 1000 Ml IV 100 mls/hr DIRECT SHANTE Administration Ceftriaxone Sodium 1 gm in 50 mls @ 100 mls/hr 04/28/19 16:00 04/29/19 10:56 Rocephin/Ns 1 Gm/50 Ml IV 100 mls/hr Q24HR SHANTE Administration Protocol Nifedipine 60 mg 04/24/19 22:00 04/29/19 10:57 Procardia Xl PO 60 mg BID SHANTE Administration Ondansetron HCl 4 mg 04/24/19 10:22 04/25/19 02:01 Zofran IV 4 mg Q8H PRN Administration Nausea And Vomiting Simethicone 80 mg 04/27/19 15:30 04/27/19 15:40 Mylicon PO 80 mg Q6H PRN Administration Gas pain Sodium Chloride 10 ml 04/24/19 22:00 04/29/19 10:58 Sodium Chloride Flush Syringe 10 Ml IV 10 ml BID SHANTE Administration Sodium Chloride 10 ml 04/24/19 10:22 04/27/19 01:32 Sodium Chloride Flush Syringe 10 Ml IV 10 ml PRN PRN Administration LINE FLUSH Tacrolimus 5 mg 04/24/19 22:00 04/29/19 10:57 Prograf PO 5 mg Q12HR SHANTE Administration Tacrolimus 1 mg 04/24/19 22:00 04/29/19 10:58 Prograf PO 1 mg Q12HR SHANTE Administration Nutrition/Malnutrition Assess - Dietary Evaluation Nutrition/Malnutrition Findings: Nutrition Notes Start: 04/27/19 10:50 Freq: Status: Active Protocol: Document 04/27/19 10:50 CT (Rec: 04/27/19 11:06 CT [id number]) Co-Sign 04/27/19 10:50 LP Nutrition Notes Need for Assessment generated from: MD Order Initial or Follow up Assessment Current Diagnosis Hypertension Other Pertinent Diagnosis ESRD on PD, HIV, Lymphoma, Bilat pneu, Rhabdomyolysis, hypocalcemia Current Diet Renal Labs/Tests Na 136 BUN 52 Creatinine 14.9 Glu 110 Pertinent Medications NS 100 ml/hr Height 5 ft 10 in Weight 70.4 kg Usual Body Weight 61.235 kg [place] Body Weight (kg) 75.45 BMI 22.2 Intake Prior to Admission Good Weight Status Appropriate Subjective/Other Information MD consult for malnutrition. Pt was eating Lopes's at time of visit. Stated that he is on a renal diet, but with PD it can be liberalized. Diet change to cardiac diet since labs are normal. Pt stated he is also taking his binder medications. Pt was eating well [employer] and has a good appetite. Pt did not eat the tray brought to him because he did not like the food. Pt stated he was not receiving calls for menu selections, was provided with the extension. Burn Absent Trauma Absent GI Symptoms None Food Allergy No Minimum of two criteria No physical signs of malnutrition #1 Nutrition Diagnosis No nutrition diagnosis at this time Is patient on ventilator? No Is Patient Ambulatory and/or Out of Bed Yes REE-([place]-St. Jeor-ambulatory/OOB) [ 2216.825 NUTR.MSJOOB] Calculation Used for Recommendations [place]-St Jeor Additional Notes Protein needs: 85-92 g/kg/day (1.2-1.3 g/kg/day) Fluid needs: per MD Nutrition Intervention Change Diet Order: Change to cardiac diet Revisit per MD consult or patient Sign Off request:
--- NOTE | 2019-04-29 12:41 | Progress Note ---
Assessment and Plan Assessment and Plan ESRD on Peritoneal Dialysis HIV Hypocalcemia Anion Gap Metabolic Acidosis Rhabdomyolysis S/p cardiac transplant in 1995 at [facility] per pt Hx of lymphoma s/p chemo in 2017 Plan: - Continue on Peritoneal Dialysis- uses his own PD cycler machine, tolerating well - Patient followed by [facility] team-currently on Prograf 6 mg po BID - On renal diet - Replete electrolytes as needed - Monitor I/O's - cont current management Hussein Adrian MD [phone] Subjective Date of service: 04/29/19 Principal diagnosis: ESRD Interval history: On PD. Objective - Exam Narrative Exam: General appearance: well-developed, well-nourished, appears stated age EENT: ATNC, PERRL, mucous membranes moist Neck: no JVD, no carotid bruit Respiratory: Present: Clear to Ascultation. Absent: Rales, Ronchi Cardiology: regular, S1S2 Gastrointestinal: normoactive bowel sounds Integumentary: no rash, warm and dry Neurologic: no focal deficit, no asterixis, alert and oriented x3 Musculoskeletal: other (no edema in BLE) Psychiatric: mood/affect appropriate, cooperative - Vital Signs Vital signs: Vital Signs - 12hr 04/29/19 05:42 Temperature 98.3 F Pulse Rate 101 H Respiratory 20 Rate Blood Pressure 130/83 O2 Sat by Pulse 96 Oximetry - Lab 04/29/19 08:15 04/29/19 08:15 Most recent lab results Calcium 6.6 mg/dL (8.4-10.2) L 04/29/19 08:15 Medications & Allergies - Medications Allergies/Adverse Reactions: Allergies NSAIDS (Non-Steroidal Anti-Inflamma Allergy (Verified 04/24/19 07:39) Hives Home Medications: Home Medications Medication Instructions Recorded Confirmed Last Taken Type Prograf 6 mg PO BID 12/27/18 04/27/19 Unknown History Triumeq 600-50-300 mg Tablet 1 tab PO DAILY 12/27/18 04/27/19 Unknown History Auryxia 210 mg PO TIDWM 04/24/19 04/24/19 Unknown History Calcitriol (Nf) 0.5 mcg PO DAILY 04/24/19 04/24/19 Unknown History Triumeq 600-50-300 mg Tablet 1 tab PO DAILY 04/24/19 04/24/19 Unknown History Azithromycin 500 mg PO DAILY #5 tablet 04/26/19 Unknown Rx Dialysate Lo Be 1.5% Soln 2,000 ml IP Q4H bag 04/26/19 Unknown Rx [Dianeal Low Calcium W/1.5% Dextrose] HYDROcodone/APAP 5-325 [[place] 1 - 2 each PO Q6HR PRN #14 tablet 04/26/19 Unknown Rx 5-325 mg TAB] NIFEdipine 60 mg PO BID #60 04/26/19 Unknown Rx NIFEdipine XL [Procardia Xl] 60 mg PO BID tablet 04/26/19 Unknown Rx Tacrolimus [Prograf] 1 mg PO Q12HR capsule 04/26/19 Unknown Rx Tacrolimus [Prograf] 5 mg PO Q12HR capsule 04/26/19 Unknown Rx Active Medications: Generic Name Dose Route Start Last Admin Trade Name Freq PRN Reason Stop Dose Admin Acetaminophen 650 mg 04/24/19 10:22 Tylenol PO Q4H PRN Pain MILD(1-3)/Fever >100.5/FREIRE Acetaminophen/Hydrocodone Bitart 1 each 04/24/19 11:13 04/25/19 10:55 [place] 5/325 PO 1 each Q6HR PRN Administration Pain, Moderate (4-6) Albuterol 2.5 mg 04/24/19 10:22 Proventil IH Q4HRT PRN Shortness Of Breath Azithromycin 500 mg 04/28/19 16:00 04/29/19 10:57 Zithromax PO 500 mg QDAY SHANTE Administration Docusate Sodium 100 mg 04/27/19 22:00 04/29/19 10:57 Colace PO 100 mg BID SHANTE Administration Hydromorphone HCl 0.5 mg 04/24/19 22:16 04/29/19 08:36 Dilaudid IV 0.5 mg Q3H PRN Administration Pain , Severe (7-10) Sodium Chloride 1,000 mls @ 100 mls/hr 04/24/19 11:00 04/25/19 09:33 Nacl 0.9% 1000 Ml IV 100 mls/hr DIRECT SHANTE Administration Ceftriaxone Sodium 1 gm in 50 mls @ 100 mls/hr 04/28/19 16:00 04/29/19 10:56 Rocephin/Ns 1 Gm/50 Ml IV 100 mls/hr Q24HR SHANTE Administration Protocol Nifedipine 60 mg 04/24/19 22:00 04/29/19 10:57 Procardia Xl PO 60 mg BID SHANTE Administration Ondansetron HCl 4 mg 04/24/19 10:22 04/25/19 02:01 Zofran IV 4 mg Q8H PRN Administration Nausea And Vomiting Simethicone 80 mg 04/27/19 15:30 04/27/19 15:40 Mylicon PO 80 mg Q6H PRN Administration Gas pain Sodium Chloride 10 ml 04/24/19 22:00 04/29/19 10:58 Sodium Chloride Flush Syringe 10 Ml IV 10 ml BID SHANTE Administration Sodium Chloride 10 ml 04/24/19 10:22 04/27/19 01:32 Sodium Chloride Flush Syringe 10 Ml IV 10 ml PRN PRN Administration LINE FLUSH Tacrolimus 5 mg 04/24/19 22:00 04/29/19 10:57 Prograf PO 5 mg Q12HR SHANTE Administration Tacrolimus 1 mg 04/24/19 22:00 04/29/19 10:58 Prograf PO 1 mg Q12HR SHANTE Administration
--- NOTE | 2019-04-29 14:06 | Procedure Note ---
Date of procedure: 04/29/19 Pre-op diagnosis: right pleural effusion Post-op diagnosis: same Procedure: US thoracentesis Findings: moderate right pleural effusion Anesthesia: local Surgeon: NINA VALERIO Estimated blood loss: none Pathology: list (120cc) Specimen disposition: to lab Condition: stable Disposition: floor
--- NOTE | 2019-04-29 14:11 | Ultrasound Report ---
Ultrasound-guided thoracentesis HISTORY: Right pleural effusion. COMPARISON: None PROCEDURE: The risks (including but not limited to bleeding, infection, and pneumothorax) and benefi ts were explained to the patient and informed consent was obtained. A time out procedure was perform ed. Ultrasound was used to evaluate the right pleural effusion and locate the optimal site for needle ent ry. Once the skin was marked, the procedure site was prepped and draped in the usual sterile fashion and lidocaine was used for local anesthesia. A skin shonda was made and a 6-Italian thoracentesis cath eter was placed. The patient was monitored closely throughout the procedure, and a total of 700 mL o f clear yellow fluid was aspirated. Samples were sent to the lab for further evaluation per the prim [facility] clinicians orders. The patient tolerated the procedure well with no complications. A post-procedure chest x-ray was imm ediately ordered. IMPRESSION: Successful thoracentesis as above with a total of 700 mL of clear yellow fluid aspirated. Signer Name: Casimiro Cornejo Jr, MD Signed: 04/29/2019 2:07 PM Workstation Name: [id number]
[2019-04-29 14:14] LABS: Total Cells Counted 100 /mm3
--- NOTE | 2019-04-29 15:29 | XRay Report ---
CHEST 1 VIEW INDICATION: right pleural effusion, recent thora. COMPARISON: 04/28/2019 FINDINGS: Support devices: None. Heart: Stable mild cardiomegaly. Lungs/Pleura: Mild central pulmonary venous congestion. Near complete evacuation of the small right p leural effusion. No pneumothorax. Additional findings: None. IMPRESSION: Near complete evacuation of the right pleural fluid. No pneumothorax. Signer Name: Casimiro Cornejo Jr, MD Signed: 04/29/2019 3:25 PM Workstation Name: [id number]
--- NOTE | 2019-04-29 17:09 | Progress Note ---
Assessment and Plan Cultures: 04/29/2019 pleural fluid: in process A/P: 24-year-old male with hypertension, ESRD on peritoneal dialysis, HIV on medications, lymphoma status post chemotherapy, status post cardiac transplant in 1995, [facility]: #R sided pneumonia, ?parapneumonic effusion: treat with Ceftriaxone and Azithromycin. Mild fever and leucocytosis, much improved #ESRD on PD #HIV: compliant with Triumeq, VL undetectable since 2016. Not on any prophylaxis, doesn't remember his CD4 count. #Cardiac transplant, immunocompromised host: on prograf Recs: - continue IV Ceftriaxone 1 gm daily - PO Azithromycin 500 mg daily x 3 days (last day tomorrow) - continue Triumeq - patient using his own supply - if he remains stable, can d/c tomorrow on PO Ceftin 500 mg daily x 5 days Shantell Garcia MD, FACP [facility] C: [phone] O: [phone] F: [phone] Subjective Date of service: 04/29/19 Principal diagnosis: ESRD Interval history: No fever. Had thoracentesis done, 120 cc removed. Follow up CXR better. No new complaints. Objective - Exam Narrative Exam: Physical Exam: Constitutional: Alert, cooperative. No acute distress Head, Ears, Nose: Normocephalic, atraumatic. External ears, nose normal Eyes: Conjunctivae/corneas clear. No icterus. No ptosis. Neck: Supple, no meningeal signs Oral: dentition fair, no thrush Cardiovascular: S1, S2 normal. Respiratory: improved AE bilaterally. GI: Soft, non-tender; bowel sounds normal. No peritoneal signs. PD cath site c lean Musculoskeletal: No pedal edema, no cyanosis. Skin: No rash or abscess Hem/Lymphatic: No palpable cervical or supraclavicular nodes. No lymphangitis Psych: Mood ok. Affect normal Neurological: Awake, alert, oriented. No gross abnormality - Constitutional Vitals: Vital Signs Temp Pulse Resp BP Pulse Ox 98.3 F 101 H 20 130/83 96 04/29/19 05:42 04/29/19 05:42 04/29/19 05:42 04/29/19 05:42 04/29/19 05:42 Temperature -Last 24 Hours Temperature 98.3 F Temperature 98.4 F - Labs CBC & Chem 7: 04/29/19 08:15 04/29/19 08:15 Labs: Abnormal lab results 04/29/19 04/29/19 Range/Units 08:15 08:15 RBC 3.37 L (3.65-5.03) M/mm3 Hgb 10.7 L (11.8-15.2) gm/dl Hct 30.6 L (35.5-45.6) % MCHC 35 H (32-34) % RDW 15.9 H (13.2-15.2) % Sodium 135 L (137-145) mmol/L Chloride 90.0 L (98-107) mmol/L Carbon Dioxide 19 L (22-30) mmol/L BUN 55 H (9-20) mg/dL Creatinine 14.7 H (0.8-1.5) mg/dL Calcium 6.6 L (8.4-10.2) mg/dL
[2019-04-30] MEDS: HYDROmorphone 1 MG/1 ML INJ IV PRN ×3 (01:46→08:00)
[2019-04-30 04:56] LABS: Hematocrit 32.6 % (35.5-45.6); Hemoglobin 11.4 gm/dl (11.8-15.2); Mean Corpuscular HGB Conc 35 % (32-34); Mean Corpuscular Volume 90 fl (84-94); Platelet Count 358 K/mm3 (140-440); Red Blood Count 3.61 M/mm3 (3.65-5.03); Red Cell Distribution Width 15.5 % (13.2-15.2)
[2019-04-30 05:21] LABS: Calcium 6.4 mg/dL (8.4-10.2)
[2019-04-30 06:49] LABS: Total Cells Counted 100
[2019-04-30 07:02] LABS: Platelet Estimate Consistent w Auto; Target Cells Few
--- NOTE | 2019-04-30 09:21 | Progress Note ---
Hospitalist Physical - Constitutional Vitals: Temp Pulse Resp BP Pulse Ox 98.3 F 104 H 18 142/91 99 04/30/19 05:47 04/30/19 05:47 04/30/19 05:47 04/30/19 05:47 04/30/19 05:47 General appearance: Present: no acute distress, well-nourished Results - Labs CBC & Chem 7: 04/30/19 04:26 04/30/19 04:26 Labs: Laboratory Last Values WBC 11.3 K/mm3 (4.5-11.0) H 04/30/19 04:26 RBC 3.61 M/mm3 (3.65-5.03) L 04/30/19 04:26 Hgb 11.4 gm/dl (11.8-15.2) L 04/30/19 04:26 Hct 32.6 % (35.5-45.6) L 04/30/19 04:26 MCV 90 fl (84-94) 04/30/19 04:26 MCH 32 pg (28-32) 04/30/19 04:26 MCHC 35 % (32-34) H 04/30/19 04:26 RDW 15.5 % (13.2-15.2) H 04/30/19 04:26 Plt Count 358 K/mm3 (140-440) 04/30/19 04:26 Lymph % (Auto) 29.8 % (13.4-35.0) 04/25/19 07:49 [place] % (Auto) 9.7 % (0.0-7.3) H 04/25/19 07:49 Eos % (Auto) 3.3 % (0.0-4.3) 04/25/19 07:49 Baso % (Auto) 0.8 % (0.0-1.8) 04/25/19 07:49 Lymph # Senior Water/Wastewater Engineer 04/30/19 04:26 [place] # 0.9 K/mm3 (0.0-0.8) H 04/25/19 07:49 Eos # 0.3 K/mm3 (0.0-0.4) 04/25/19 07:49 Baso # 0.1 K/mm3 (0.0-0.1) 04/25/19 07:49 Add Manual Diff Complete 04/30/19 04:26 Total Counted 100 04/30/19 04:26 Seg Neutrophils % 56.4 % (40.0-70.0) 04/25/19 07:49 Seg Neuts % (Manual) 44.0 % (40.0-70.0) 04/30/19 04:26 Band Neutrophils % 0 % 04/30/19 04:26 Lymphocytes % (Manual) 39.0 % (13.4-35.0) H 04/30/19 04:26 Reactive Lymphs % (Man) 0 % 04/30/19 04:26 Monocytes % (Manual) 11.0 % (0.0-7.3) H 04/30/19 04:26 Eosinophils % (Manual) 5.0 % (0.0-4.3) H 04/30/19 04:26 Basophils % (Manual) 1.0 % (0.0-1.8) 04/30/19 04:26 Metamyelocytes % 0 % 04/30/19 04:26 Myelocytes % 0 % 04/30/19 04:26 Promyelocytes % 0 % 04/30/19 04:26 Blast Cells % 0 % 04/30/19 04:26 Nucleated RBC % Not Reportable 04/30/19 04:26 Seg Neutrophils # 5.5 K/mm3 (1.8-7.7) 04/25/19 07:49 Seg Neutrophils # Man 5.0 K/mm3 (1.8-7.7) 04/30/19 04:26 Band Neutrophils # 0.0 K/mm3 04/30/19 04:26 Lymphocytes # (Manual) 4.4 K/mm3 (1.2-5.4) 04/30/19 04:26 Abs React Lymphs (Man) 0.0 K/mm3 04/30/19 04:26 Monocytes # (Manual) 1.2 K/mm3 (0.0-0.8) H 04/30/19 04:26 Eosinophils # (Manual) 0.6 K/mm3 (0.0-0.4) H 04/30/19 04:26 Basophils # (Manual) 0.1 K/mm3 (0.0-0.1) 04/30/19 04:26 Metamyelocytes # 0.0 K/mm3 04/30/19 04:26 Myelocytes # 0.0 K/mm3 04/30/19 04:26 Promyelocytes # 0.0 K/mm3 04/30/19 04:26 Blast Cells # 0.0 K/mm3 04/30/19 04:26 WBC Morphology Not Reportable 04/30/19 04:26 Hypersegmented Neuts Not Reportable 04/30/19 04:26 Hyposegmented Neuts Not Reportable 04/30/19 04:26 Hypogranular Neuts Not Reportable 04/30/19 04:26 Smudge Cells Not Reportable 04/30/19 04:26 Toxic Granulation Not Reportable 04/30/19 04:26 Toxic Vacuolation Not Reportable 04/30/19 04:26 Dohle Bodies Not Reportable 04/30/19 04:26 [place]-Huet Anomaly Not Reportable 04/30/19 04:26 Rosaura Rods Not Reportable 04/30/19 04:26 Platelet Estimate Consistent w auto 04/30/19 04:26 Clumped Platelets Not Reportable 04/30/19 04:26 Plt Clumps, EDTA Not Reportable 04/30/19 04:26 Large Platelets Not Reportable 04/30/19 04:26 Giant Platelets Not Reportable 04/30/19 04:26 Platelet Satelliting Not Reportable 04/30/19 04:26 Plt Morphology Comment Not Reportable 04/30/19 04:26 RBC Morphology Not Reportable 04/30/19 04:26 Dimorphic RBCs Not Reportable 04/30/19 04:26 Polychromasia Not Reportable 04/30/19 04:26 Hypochromasia Not Reportable 04/30/19 04:26 Poikilocytosis Not Reportable 04/30/19 04:26 Anisocytosis Not Reportable 04/30/19 04:26 Microcytosis Not Reportable 04/30/19 04:26 Macrocytosis Not Reportable 04/30/19 04:26 Spherocytes Not Reportable 04/30/19 04:26 Pappenheimer Bodies Not Reportable 04/30/19 04:26 Sickle Cells Not Reportable 04/30/19 04:26 Target Cells Few 04/30/19 04:26 Tear Drop Cells Not Reportable 04/30/19 04:26 Ovalocytes Not Reportable 04/30/19 04:26 Helmet Cells Not Reportable 04/30/19 04:26 [place] Bodies Not Reportable 04/30/19 04:26 [place] Rings Not Reportable 04/30/19 04:26 [place] Cells Not Reportable 04/30/19 04:26 Bite Cells Not Reportable 04/30/19 04:26 Crenated Cell Not Reportable 04/30/19 04:26 Elliptocytes Not Reportable 04/30/19 04:26 Acanthocytes (Spur) Not Reportable 04/30/19 04:26 Rouleaux Not Reportable 04/30/19 04:26 Hemoglobin C Crystals Not Reportable 04/30/19 04:26 Schistocytes Not Reportable 04/30/19 04:26 Malaria parasites Not Reportable 04/30/19 04:26 Jad Bodies Not Reportable 04/30/19 04:26 Hem Pathologist Commnt No 04/30/19 04:26 PT 14.8 Sec. (12.2-14.9) 04/24/19 08:00 INR 1.17 (0.87-1.13) H 04/24/19 08:00 APTT 42.7 Sec. (24.2-36.6) H 04/24/19 08:00 Sodium 135 mmol/L (137-145) L 04/30/19 04:26 Potassium 3.9 mmol/L (3.6-5.0) 04/30/19 04:26 Chloride 93.5 mmol/L (98-107) L 04/30/19 04:26 Carbon Dioxide 21 mmol/L (22-30) L 04/30/19 04:26 Anion Gap 24 mmol/L 04/30/19 04:26 BUN 54 mg/dL (9-20) H 04/30/19 04:26 Creatinine 14.7 mg/dL (0.8-1.5) H 04/30/19 04:26 Estimated GFR 5 ml/min 04/30/19 04:26 BUN/Creatinine Ratio 4 % 04/30/19 04:26 Glucose 113 mg/dL (75-100) H 04/30/19 04:26 Calcium 6.4 mg/dL (8.4-10.2) L 04/30/19 04:26 Ionized Calcium 2.8 mg/dL (4.8-5.6) L* 04/24/19 08:00 Total Bilirubin < 0.20 mg/dL (0.1-1.2) 04/24/19 06:32 Direct Bilirubin < 0.2 mg/dL (0-0.2) 04/24/19 06:32 Indirect Bilirubin 0.0 mg/dL 04/24/19 06:32 AST 35 units/L (5-40) 04/24/19 06:32 ALT 28 units/L (7-56) 04/24/19 06:32 Alkaline Phosphatase 129 units/L (35-129) 04/24/19 06:32 Total Creatine Kinase 1355 units/L (55-170) H 04/28/19 04:06 Total Protein 7.2 g/dL (6.3-8.2) 04/24/19 06:32 Albumin 3.5 g/dL (3.9-5) L 04/24/19 06:32 Albumin/Globulin Ratio 0.9 % 04/24/19 06:32 PTH Intact 1091 pg/mL (15-65) H 04/25/19 07:49 Fluid Type Pleural 04/29/19 12:35 Fluid Color Yellow 04/29/19 12:35 Fluid Appearance Hazy 04/29/19 12:35 Fluid WBC 418 /mm3 04/29/19 12:35 Fluid RBC 1243 /mm3 04/29/19 12:35 Fluid Seg Neutrophils 6.0 % 04/29/19 12:35 Fluid Lymphocytes 24.0 % 04/29/19 12:35 Fluid Reactive Lymphs 0 % 04/29/19 12:35 Fluid Monocytes 70.0 % 04/29/19 12:35 Fluid Eosinophils 0 % 04/29/19 12:35 Fluid Basophils 0 % 04/29/19 12:35 Tacrolimus (Send Out) 4.3 mcg/L 04/26/19 07:28 Active Medications - Current Medications Current Medications: Generic Name Dose Route Start Last Admin Trade Name Freq PRN Reason Stop Dose Admin Acetaminophen 650 mg 04/24/19 10:22 Tylenol PO Q4H PRN Pain MILD(1-3)/Fever >100.5/FREIRE Acetaminophen/Hydrocodone Bitart 1 each 04/24/19 11:13 04/25/19 10:55 [place] 5/325 PO 1 each Q6HR PRN Administration Pain, Moderate (4-6) Albuterol 2.5 mg 04/24/19 10:22 Proventil IH Q4HRT PRN Shortness Of Breath Azithromycin 500 mg 04/28/19 16:00 04/29/19 10:57 Zithromax PO 04/30/19 10:01 500 mg QDAY SHANTE Administration Docusate Sodium 100 mg 04/27/19 22:00 04/29/19 22:37 Colace PO 100 mg BID SHANTE Administration Hydromorphone HCl 0.5 mg 04/24/19 22:16 04/30/19 08:00 Dilaudid IV 0.5 mg Q3H PRN Administration Pain , Severe (7-10) Sodium Chloride 1,000 mls @ 100 mls/hr 04/24/19 11:00 04/25/19 09:33 Nacl 0.9% 1000 Ml IV 100 mls/hr DIRECT SHANTE Administration Ceftriaxone Sodium 1 gm in 50 mls @ 100 mls/hr 04/28/19 16:00 04/29/19 10:56 Rocephin/Ns 1 Gm/50 Ml IV 100 mls/hr Q24HR SHANTE Administration Protocol Nifedipine 60 mg 04/24/19 22:00 04/29/19 22:27 Procardia Xl PO 60 mg BID SHANTE Administration Ondansetron HCl 4 mg 04/24/19 10:22 04/25/19 02:01 Zofran IV 4 mg Q8H PRN Administration Nausea And Vomiting Simethicone 80 mg 04/27/19 15:30 04/27/19 15:40 Mylicon PO 80 mg Q6H PRN Administration Gas pain Sodium Chloride 10 ml 04/24/19 22:00 04/29/19 22:33 Sodium Chloride Flush Syringe 10 Ml IV 10 ml BID SHANTE Administration Sodium Chloride 10 ml 04/24/19 10:22 04/27/19 01:32 Sodium Chloride Flush Syringe 10 Ml IV 10 ml PRN PRN Administration LINE FLUSH Tacrolimus 5 mg 04/24/19 22:00 04/29/19 22:26 Prograf PO 5 mg Q12HR SHANTE Administration Tacrolimus 1 mg 04/24/19 22:00 04/29/19 22:26 Prograf PO 1 mg Q12HR SHANTE Administration Nutrition/Malnutrition Assess - Dietary Evaluation Nutrition/Malnutrition Findings: Nutrition Notes Start: 04/27/19 10:50 Freq: Status: Active Protocol: Document 04/27/19 10:50 CT (Rec: 04/27/19 11:06 CT [id number]) Co-Sign 04/27/19 10:50 LP Nutrition Notes Need for Assessment generated from: MD Order Initial or Follow up Assessment Current Diagnosis Hypertension Other Pertinent Diagnosis ESRD on PD, HIV, Lymphoma, Bilat pneu, Rhabdomyolysis, hypocalcemia Current Diet Renal Labs/Tests Na 136 BUN 52 Creatinine 14.9 Glu 110 Pertinent Medications NS 100 ml/hr Height 5 ft 10 in Weight 70.4 kg Usual Body Weight 61.235 kg [place] Body Weight (kg) 75.45 BMI 22.2 Intake Prior to Admission Good Weight Status Appropriate Subjective/Other Information MD consult for malnutrition. Pt was eating Lopes's at time of visit. Stated that he is on a renal diet, but with PD it can be liberalized. Diet change to cardiac diet since labs are normal. Pt stated he is also taking his binder medications. 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 Pt did not eat the tray brought to him because he did not like the food. Pt stated he was not receiving calls for menu selections, was provided with the extension. Burn Absent Trauma Absent GI Symptoms None Food Allergy No Minimum of two criteria No physical signs of malnutrition #1 Nutrition Diagnosis No nutrition diagnosis at this time Is patient on ventilator? No Is Patient Ambulatory and/or Out of Bed Yes REE-([place] Je[place]-ambulatory/OOB) [ 2216.825 [id number]] Calculation Used for Recommendations [place] Je[place] Additional Notes Protein needs: 85-92 g/kg/day (1.2-1.3 g/kg/day) Fluid needs: per MD Nutrition Intervention Change Diet Order: Change to cardiac diet Revisit per MD consult or patient Sign Off request:
[2019-04-30] MEDS: cefTRIAXone/NS 1 GM/50 ML 1 GM/50 ML BAG IV SCH (10:33)
[2019-04-30] MEDS: AZITHROMYCIN 250 MG TAB PO SCH (10:34)
[2019-04-30] MEDS: TACROLIMUS 5 MG CAP PO SCH (10:35)
[2019-04-30] MEDS: DOCUSATE SODIUM 100 MG CAP PO SCH (10:35)
[2019-04-30] MEDS: NIFEdipine XL 30 MG TAB PO SCH (10:35)
[2019-04-30] MEDS: TACROLIMUS 1 MG CAP PO SCH (10:36)
--- NOTE | 2019-04-30 11:47 | Discharge Summary ---
Providers - Providers Date of Admission: 04/24/19 09:35 Date of discharge: 04/30/19 Attending physician: DIANN LUX 04/24/19 08:39 Consult to Physician [CONS] Urgent Comment: Consulting Provider: MARIANA VIZCARRA Physician Instructions: Reason For Exam: esrd 04/26/19 18:22 Consult to Dietitian/Nutrition [CONS] Routine Physician Instructions: Reason For Exam: Reason for Consult: Malnutrition 04/28/19 08:05 Consult to Physician [CONS] Routine Comment: Consulting Provider: WILLIAM ZHANG Physician Instructions: Reason For Exam: pna Hospitalization Condition: Fair Hospital course: Patient is 24 YO Male with HTN, ESRD on PD, HIV, Lymphoma, S/P Cardiac transplant on Prograf presented to ED for evaluation. Pt states that he has experienced pain to his left buttock as well as muscle soreness over 2 days with progressively worsening symptoms over 1 day. he was seen and evaluated in ED and found to have Rhabdomyolysis, ESRD, Acidosis, and Severe Malnutrition. Pt admitted to medical floor. Transplant Service at [facility] notified, and patient does not require transfer. Nephrology consulted in ED for PD, Surgery team consulted. Bilateral pneumonia. Treated with IV Ceftriaxone 1 gm daily + PO Azithromycin 500 mg daily ID was following Right parapneumonic effusion US guided R sided thoracentesis done HIV disease Cont per ID Rhabdomyolysis, managed with IVF resuscitation therapy, nephrology following Left Gluteal pain CT scan and Hip x-ray negative. Resolved. Severe malnutrition Increased protein intake, dietary supplementation ESRD on peritoneal dialysis Nephrology managed dialysis as inpatient Hypocalcemia. Treated with Calcium gluconate administered in ED, repeat bmp in am. Hypertension. Monitor bp q shift, supportive care s/p cardiac transplant. Continued Prograf Total time spent on discharge, 35 mins Disposition: TO HOME OR SELFCARE - Discharge Diagnoses (1) Pneumonia Status: Acute (2) ESRD on peritoneal dialysis Status: Acute (3) HTN (hypertension) Status: Acute Qualifiers: Hypertension type: essential hypertension Qualified Code(s): I10 - Essent ial (primary) hypertension (4) Hypocalcemia Status: Acute (5) Rhabdomyolysis Status: Acute Qualifiers: Encounter type: initial encounter (6) Severe malnutrition Status: Acute (7) Heart transplant recipient Status: Acute Core Measure Documentation - Palliative Care Palliative Care/ Comfort Measures: Not Applicable - Core Measures Any of the following diagnoses?: none Exam - Constitutional Vitals: Temp Pulse Resp BP Pulse Ox 98.3 F 104 H 18 142/91 99 04/30/19 05:47 04/30/19 05:47 04/30/19 05:47 04/30/19 05:47 04/30/19 05:47 Plan Activity: no restrictions Diet: low salt, renal Plan of Treatment: 1.Follow up with PCP in 1 week. 2.Continue routine hemodialysis as scheduled Follow up with: PRIMARY CARE, [Referring] - 3-5 Days Prescriptions: cefUROXime [Ceftin] 500 mg PO DAILY 5 Days #10 tablet NIFEdipine 60 mg PO BID #60 HYDROcodone/APAP 5-325 [[place] 5-325 mg TAB] 1 - 2 each PO Q6HR PRN #14 tablet PRN Reason: Pain
[2019-04-30 11:58] VITALS: BP 130/88
--- NOTE | 2019-04-30 13:00 | Progress Note ---
Assessment and Plan Assessment and Plan ESRD on Peritoneal Dialysis HIV Hypocalcemia Anion Gap Metabolic Acidosis Rhabdomyolysis S/p cardiac transplant in 1995 at [facility] per pt Hx of lymphoma s/p chemo in 2017 Plan: - Continue on Peritoneal Dialysis- uses his own PD cycler machine, tolerating well - Patient followed by [facility] team for heart tx-currently on Prograf 6 mg po BID - On renal diet - Replete electrolytes as needed - Monitor I/O's - cont current management Hussein Adrian MD [phone] Subjective Date of service: 04/30/19 Principal diagnosis: ESRD Interval history: On PD. Denies N/V, CP, SHOB. Makes some urine. Objective - Exam Narrative Exam: General appearance: well-developed, well-nourished, appears stated age EENT: ATNC, PERRL, mucous membranes moist Neck: no JVD, no carotid bruit Respiratory: Present: Clear to Ascultation. Absent: Rales, Ronchi Cardiology: regular, S1S2 Gastrointestinal: normoactive bowel sounds Integumentary: no rash, warm and dry Neurologic: no focal deficit, no asterixis, alert and oriented x3 Musculoskeletal: other (no edema in BLE) Psychiatric: mood/affect appropriate, cooperative - Vital Signs Vital signs: Vital Signs - 12hr 04/30/19 04/30/19 05:47 11:58 Temperature 98.3 F 98.4 F Pulse Rate 104 H 100 H Respiratory 18 14 Rate Blood Pressure 142/91 130/88 O2 Sat by Pulse 99 96 Oximetry - Lab 04/30/19 04:26 04/30/19 04:26 Most recent lab results Calcium 6.4 mg/dL (8.4-10.2) L 04/30/19 04:26 Medications & Allergies - Medications Allergies/Adverse Reactions: Allergies NSAIDS (Non-Steroidal Anti-Inflamma Allergy (Verified 04/24/19 07:39) Hives Home Medications: Home Medications Medication Instructions Recorded Confirmed Last Taken Type Prograf 6 mg PO BID 12/27/18 04/27/19 Unknown History Triumeq 600-50-300 mg Tablet 1 tab PO DAILY 12/27/18 04/27/19 Unknown History Auryxia 210 mg PO TIDWM 04/24/19 04/24/19 Unknown History Calcitriol (Nf) 0.5 mcg PO DAILY 04/24/19 04/24/19 Unknown History Triumeq 600-50-300 mg Tablet 1 tab PO DAILY 04/24/19 04/24/19 Unknown History Dialysate Lo Be 1.5% Soln 2,000 ml IP Q4H bag 04/26/19 Unknown Rx [Dianeal Low Calcium W/1.5% Dextrose] HYDROcodone/APAP 5-325 [[employer] [place] [employer] 1 - 2 each PO Q6HR PRN #14 tablet 04/26/19 Unknown Rx 5-325 mg TAB] NIFEdipine 60 mg PO BID #60 04/26/19 Unknown Rx NIFEdipine XL [Procardia Xl] 60 mg PO BID tablet 04/26/19 Unknown Rx Tacrolimus [Prograf] 1 mg PO Q12HR capsule 04/26/19 Unknown Rx Tacrolimus [Prograf] 5 mg PO Q12HR capsule 04/26/19 Unknown Rx cefUROXime [Ceftin] 500 mg PO DAILY 5 Days #10 tablet 04/30/19 Unknown Rx Active Medications: Generic Name Dose Route Start Last Admin Trade Name Freq PRN Reason Stop Dose Admin Acetaminophen 650 mg 04/24/19 10:22 Tylenol PO Q4H PRN Pain MILD(1-3)/Fever >100.5/FREIRE Acetaminophen/Hydrocodone Bitart 1 each 04/24/19 11:13 04/25/19 10:55 [place] [employer] 5/325 PO 1 each Q6HR PRN Administration Pain, Moderate (4-6) Albuterol 2.5 mg 04/24/19 10:22 Proventil IH Q4HRT PRN Shortness Of Breath Docusate Sodium 100 mg 04/27/19 22:00 04/30/19 10:35 Colace PO 100 mg BID SHANTE Administration Hydromorphone HCl 0.5 mg 04/24/19 22:16 04/30/19 08:00 Dilaudid IV 0.5 mg Q3H PRN Administration Pain , Severe (7-10) Sodium Chloride 1,000 mls @ 100 mls/hr 04/24/19 11:00 04/25/19 09:33 Nacl 0.9% 1000 Ml IV 100 mls/hr DIRECT SHANTE Administration Ceftriaxone Sodium 1 gm in 50 mls @ 100 mls/hr 04/28/19 16:00 04/30/19 10:33 Rocephin/Ns 1 Gm/50 Ml IV 100 mls/hr Q24HR SHANTE Administration Protocol Nifedipine 60 mg 04/24/19 22:00 04/30/19 10:35 Procardia Xl PO 60 mg BID SHANTE Administration Ondansetron HCl 4 mg 04/24/19 10:22 04/25/19 02:01 Zofran IV 4 mg Q8H PRN Administration Nausea And Vomiting Simethicone 80 mg 04/27/19 15:30 04/27/19 15:40 Mylicon PO 80 mg Q6H PRN Administration Gas pain Sodium Chloride 10 ml 04/24/19 22:00 04/30/19 10:34 Sodium Chloride Flush Syringe 10 Ml IV 10 ml BID SHANTE Administration Sodium Chloride 10 ml 04/24/19 10:22 04/27/19 01:32 Sodium Chloride Flush Syringe 10 Ml IV 10 ml PRN PRN Administration LINE FLUSH Tacrolimus 5 mg 04/24/19 22:00 04/30/19 10:35 Prograf PO 5 mg Q12HR SHANTE Administration Tacrolimus 1 mg 04/24/19 22:00 04/30/19 10:36 Prograf PO 1 mg Q12HR SHANTE Administration
[2019-05-06 07:34] LABS: LDH,Body Fluid 193; Total Protein,Body Fluid < 3.0 (15.0-45.0); pH, Body Fluid 7.6
== END 2019-04-30 14:30 | disposition home or self-care (01) | DRG 557 ==
LOC: ED 04:31 → 3A 09:35
PROVIDERS: ADMIT Internal Medicine; ATTEND Internal Medicine
PROC: 0W993ZZ Drainage of Right Pleural Cavity, Percutaneous Approach (ICD-10-PCS; principal; 2019-04-29)
PROC: BB4BZZZ Ultrasonography of Pleura (ICD-10-PCS; 2019-04-29)
DX: M62.82 Rhabdomyolysis (principal); J18.9 Pneumonia, unspecified organism; N18.6 End stage renal disease; E43 Unspecified severe protein-calorie malnutrition; B20 Human immunodeficiency virus [HIV] disease; I12.0 Hypertensive chronic kidney disease with stage 5 chronic kidney disease or end stage renal disease; J90 Pleural effusion, not elsewhere classified; E87.2 Acidosis; E83.51 Hypocalcemia; Z94.89 Other transplanted organ and tissue status; Z82.49 Family history of ischemic heart disease and other diseases of the circulatory system; Z79.899 Other long term (current) drug therapy; Z99.2 Dependence on renal dialysis; Z68.22 Body mass index [BMI] 22.0-22.9, adult
CPT/HCPCS: 32555; 36415; 71045; 72192; 74018; 80048; 80076; 80197; 82330; 82550; 83605; 83970; 84160; 85007; 85025; 85027; 85610; 85730; 87116; 88112; 88305; 88341; 88342; 89051; 93005; 93010; G0378; J0610; J0696; J1170; J1956; J2270; J2405; J3010; J7030; J7040; J7507

== ENCOUNTER 2019-11-22 14:16 | Emergency (ER) | payer MEDICARE ==
[2019-11-22 14:23] VITALS: BP 149/98
[2019-11-22] MEDS ORDERED: dexAMETHasone 4 MG/ML VIAL IM ONE (15:25)
--- NOTE | 2019-11-22 15:25 | Emergency Department Report ---
ED Lower Extremity HPI - General Chief Complaint: Extremity Injury, Lower Stated Complaint: RIGHT TOE PAIN Time Seen by Provider: 11/22/19 14:31 Source: patient Mode of arrival: Wheelchair Limitations: No Limitations - History of Present Illness Initial Comments: 24 YO AA MALE WHO HAS HAD HEART TRANSPLANT IN PAST COMES IN WITH SEVERE FOOT PAIN. NO TRAUMA. 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 CRYING WITH PAIN. -: Gradual, days(s) Place: home Severity: severe Improves With: nothing Worsens With: weight bearing Context: other - Related Data Home Medications Medication Instructions Recorded Confirmed Last Taken Prograf 6 mg PO BID 12/27/18 04/27/19 Unknown Triumeq 600-50-300 mg Tablet 1 tab PO DAILY 12/27/18 04/27/19 Unknown Auryxia 210 mg PO TIDWM 04/24/19 04/24/19 Unknown Calcitriol (Nf) 0.5 mcg PO DAILY 04/24/19 04/24/19 Unknown Triumeq 600-50-300 mg Tablet 1 tab PO DAILY 04/24/19 04/24/19 Unknown Previous Rx's Medication Instructions Recorded Last Taken Type Dialysate Lo Be 1.5% Soln 2,000 ml IP Q4H bag 04/26/19 Unknown Rx [Dianeal Low Calcium W/1.5% Dextrose] HYDROcodone/APAP 5-325 [Bulan 1 - 2 each PO Q6HR PRN #14 tablet 04/26/19 Unknown Rx 5-325 mg TAB] NIFEdipine 60 mg PO BID #60 04/26/19 Unknown Rx NIFEdipine XL [Procardia Xl] 60 mg PO BID tablet 04/26/19 Unknown Rx Tacrolimus [Prograf] 1 mg PO Q12HR capsule 04/26/19 Unknown Rx Tacrolimus [Prograf] 5 mg PO Q12HR capsule 04/26/19 Unknown Rx methylPREDNISolone [Medrol 4MG 4 mg PO DAILY #1 tab.ds.pk 11/22/19 Unknown Rx DOSEPAK (21 tabs)] Allergies Allergy/AdvReac Type Severity Reaction Status Date / Time NSAIDS (Non-Steroidal Allergy Hives Verified 11/22/19 14:23 Anti-Inflamma ED Review of Systems ROS: Stated complaint: RIGHT TOE PAIN Other details as noted in HPI Comment: All other systems reviewed and negative ED Past Medical Hx - Past Medical History Previous Medical History?: Yes Hx Renal Disease: Yes (PD) Hx of Cancer: Yes (lymphoma) Hx HIV: Yes Additional medical history: heart transplant - Surgical History Past Surgical History?: Yes Additional Surgical History: heart transplant - Family History Family history: no significant - Social History Smoking Status: Never Smoker Substance Use Type: None - Medications Home Medications: Home Medications Medication Instructions Recorded Confirmed Last Taken Type Prograf 6 mg PO BID 12/27/18 04/27/19 Unknown History Triumeq 600-50-300 mg Tablet 1 tab PO DAILY 12/27/18 04/27/19 Unknown History Auryxia 210 mg PO TIDWM 04/24/19 04/24/19 Unknown History Calcitriol (Nf) 0.5 mcg PO DAILY 04/24/19 04/24/19 Unknown History Triumeq 600-50-300 mg Tablet 1 tab PO DAILY 04/24/19 04/24/19 Unknown History Dialysate Lo Be 1.5% Soln 2,000 ml IP Q4H bag 04/26/19 Unknown Rx [Dianeal Low Calcium W/1.5% Dextrose] HYDROcodone/APAP 5-325 [Bulan 1 - 2 each PO Q6HR PRN #14 tablet 04/26/19 Unknown Rx 5-325 mg TAB] NIFEdipine 60 mg PO BID #60 04/26/19 Unknown Rx NIFEdipine XL [Procardia Xl] 60 mg PO BID tablet 04/26/19 Unknown Rx Tacrolimus [Prograf] 1 mg PO Q12HR capsule 04/26/19 Unknown Rx Tacrolimus [Prograf] 5 mg PO Q12HR capsule 04/26/19 Unknown Rx methylPREDNISolone [Medrol 4MG 4 mg PO DAILY #1 tab.ds.pk 11/22/19 Unknown Rx DOSEPAK (21 tabs)] ED Physical Exam - General Limitations: No Limitations General appearance: alert, in no apparent distress - Head Head exam: Present: atraumatic, normocephalic - Eye Eye exam: Present: normal appearance - ENT ENT exam: Present: mucous membranes moist - Neck Neck exam: Present: normal inspection - Respiratory Respiratory exam: Present: normal lung sounds bilaterally. Absent: respiratory distress - Cardiovascular Cardiovascular Exam: Present: regular rate, normal rhythm. Absent: systolic murmur, diastolic murmur, rubs, gallop - GI/Abdominal GI/Abdominal exam: Present: soft, normal bowel sounds - Rectal Rectal exam: Present: deferred - Extremities Exam Extremities exam: Present: normal inspection - Back Exam Back exam: Present: normal inspection - Neurological Exam Neurological exam: Present: alert, oriented X3 - Psychiatric Psychiatric exam: Present: normal affect, normal mood - Skin Skin exam: Present: warm, dry, intact, normal color. Absent: rash ED Course Vital Signs 11/22/19 14:21 Temperature 98.0 F Pulse Rate 109 H Respiratory 20 Rate Blood Pressure 149/98 O2 Sat by Pulse 96 Oximetry ED Lower Extremity MDM - Medical Decision Making DENIES TRAUMA NEUROVASC INTACT A/C BUNION SEE PMH DECADRON IM DC HOME WITH PODIATRY FOLLOW UP PT VERBALIZES UNDERSTANDING OF NEED TO FOLLOW UP Vital Signs 11/22/19 14:21 Temperature 98.0 F Pulse Rate 109 H Respiratory 20 Rate Blood Pressure 149/98 O2 Sat by Pulse 96 Oximetry - Differential Diagnosis RO TRAUMA Critical care attestation.: If time is entered above; I have spent that time in minutes in the direct care of this critically ill patient, excluding procedure time. ED Disposition Clinical Impression: Foot pain Disposition: DC-01 TO HOME OR SELFCARE Is pt being admited?: No Does the pt Need Aspirin: No Condition: Stable Additional Instructions: FOLLOW UP WITH FEED HANDLER ZENON Prescriptions: methylPREDNISolone [Medrol 4MG DOSEPAK (21 tabs)] 4 mg PO DAILY #1 tab.ds.pk Referrals: KRISTY LAU MD [Staff Physician] - 3-5 Days Time of Disposition: 15:27
== END 2019-11-22 15:50 | disposition home or self-care (01) ==
LOC: ED 14:16
DX: M79.671 Pain in right foot (principal); N28.9 Disorder of kidney and ureter, unspecified; Z21 Asymptomatic human immunodeficiency virus [HIV] infection status; Z79.1 Long term (current) use of non-steroidal anti-inflammatories (NSAID); Z79.899 Other long term (current) drug therapy
CPT/HCPCS: 96372; 99282; J1100